=== PATIENT | female | born 1995 | race Caucasian/White ===

== ENCOUNTER 2021-01-19 09:35 | Inpatient (IN) | payer OTHER, SELFPAY ==
[2021-01-19 10:06] VITALS: BP 131/88; PULSE 89; RESP 17; TEMP 37; O2SAT 96
[2021-01-19 10:28] VITALS: BP 130/80; PULSE 101; O2SAT 98; BMI 29.3
--- NOTE | 2021-01-19 10:59 | ECG_ITS ---
Test Reason : MEDICAL CLEARANCE Blood Pressure : / mmHG Vent. Rate : 055 BPM Atrial Rate : 055 BPM P-R Int : 162 ms QRS Dur : 082 ms QT Int : 432 ms P-R-T Axes : 011 044 020 degrees QTc Int : 413 ms Sinus bradycardia with sinus arrhythmia Otherwise normal ECG No previous ECGs available Referred By: Elisabeth Stewart Electronically Signed By:ALANIS MORALES MD
[2021-01-19 11:41] LABS: MANUAL DIFF FLAG NO
[2021-01-19 11:44] LABS: Hematocrit 41.2 % (37-47); Hemoglobin 14.1 g/dl (12.0-16.0); Mean Corpuscular HGB Conc 34.2 g/dl (31.0-35.0); Mean Corpuscular Hemoglobin 28.5 pg (27.0-33.0); Mean Corpuscular Volume 83.2 fL (80-98); Platelet Count 368 X10*3/uL (160-400); Red Blood Count 4.95 X10*6/uL (4.20-5.50); Red Cell Distribution Width 12.1 % (11.0-16.0); White Blood Count 5.6 X10*3/uL (4.8-10.8)
[2021-01-19 11:45] LABS: Basophils Absolute Auto 0.1 X10*3/uL (0.0-0.2); Basophils Percent Auto 0.9 % (0-2); Eosinophils Percent Auto 0.5 % (0-4); Glucose Urine UA NEG (NEG); Imm Gran Abs Auto 0.01 X10*3/uL (0.00-0.03); Imm Gran Pct Auto 0.2 % (0.0-0.4); Leukocyte Esterase Urine 1+ (NEG); Lymphocytes Absolute Auto 1.2 X10*3/uL (1.2-4.9); Lymphocytes Percent Auto 21.1 % (20-40); Monocytes Absolute Auto 0.3 X10*3/uL (0.1-1.2); Monocytes Percent Auto 5.3 % (2-11); Neutrophils Absolute Auto 4.1 X10*3/uL (2.0-8.3); Nitrite Urine POS (NEG); Specific Gravity - Urine >= 1.030 (1.005-1.025); UACC Culture Trigger YES; Urine Blood NEG (NEG); Urine Ketones 5 MG/DL (NEG); Urine Protein TRACE MG/DL (NEG-TRACE)
[2021-01-19 11:46] LABS: Appearance Urine CLOUDY; Color Urine YELLOW
[2021-01-19 11:55] LABS: Bacteria Urine 4+ /LPF; Calcium Oxalate Crystals Urine TRACE /LPF; RBC Urine 0 /HPF (0); Squamous Epithelial Cell Urine TRACE /LPF
[2021-01-19 12:16] LABS: HCG Quantitative < 2 mIU/mL
[2021-01-19 12:28] LABS: Ethanol < 10 mg/dL
[2021-01-19 12:28] LABS: Amphetamine Screen Urine Not Detected (Not Detect); Barbiturates, Urine Not Detected (Not Detect); Benzodiazepines Screen Urine Not Detected (Not Detect); Cannabinoid Screen Urine Not Detected (Not Detect); Cocaine Screen Urine Not Detected (Not Detect); Opiate Screen Urine Not Detected (Not Detect); Phencyclidine Screen Urine Not Detected (Not Detect)
[2021-01-19 12:29] LABS: Magnesium 2.1 mg/dL (1.6-2.6)
[2021-01-19 12:33] LABS: Alanine Aminotransferase 16 U/L (0-31); Albumin Level 4.6 g/dL (3.5-5.0); Alkaline Phosphatase 54 U/L (39-117); Anion Gap 17 (12-20); Aspartate Amino Transferase 15 U/L (5-31); Bilirubin Total 0.7 mg/dL (0.0-1.0); Blood Urea Nitrogen 13 mg/dL (9-16); Calcium 10.3 mg/dL (8.4-10.2); Carbon Dioxide 24 mmol/L (22-29); Chloride 104 mmol/L (96-108); Creatinine Clr Calc Pharmacy 113.9; Estimated Glomerular Filt Rate > 60; Glucose Random 106 mg/dL (60-115); Potassium 4.5 mmol/L (3.3-5.1); Sodium 140 mmol/L (135-145); Total Protein 8.3 g/dL (6.5-8.0)
--- NOTE | 2021-01-19 12:43 | ED.PSYCH ---
HPI - Psych General Chief Complaint: Psychiatric Symptoms Stated Complaint: crisis Time Seen by Provider: 01/19/21 09:49 Source: patient and family ( and brother who is a clinician) Mode of arrival: ambulatory Limitations: no limitations History of Present Illness HPI Narrative: 25-year-old female with a past medical history of asthma presenting to the ED with her brother who is a clinician and her at bedside with complaints of increased anxiety with depression with associated auditory/visual hallucinations to harm her children with SI thoughts to harm herself because she does not want to continue having these hallucinations/vivid dreams/nightmares about harming her 2 children. She reports that for the past 3 weeks she has been having nightmares and having auditory and visual hallucinations with vivid dreams and nightmares to harm her 2 children and she does not want to harm her 2 children and she feels very guilty about having these thoughts/dreams. Her brother pulled me aside due to patient allowed him to speak to me privately to give me more information about the patient's history and what she is going through. Apparently the patient's was before marrying the patient and his committed suicide in the house that the patient and her are currently living in. Apparently 2 years ago she had a similar situation where she was having same anxiety/depression with auditory visual hallucinations/vivid dreams to harm her children with SI thoughts to harm herself therefore she was started on medication and because the house was a trigger they had to move out of the house into the [id number]'s house and the [id number] moved into the house where the suicide was committed. She lived there with her and her stepdaughter and her child for a while then recently they decided that they wanted to move back into the house because it was bigger than the [id number] house therefore they switch back and for the past 3 weeks since being in the new house she has started with the symptoms again. Although she has not had the symptoms in over 2 years. The patient denies the house being the trigger at this point. Although the brother believes this is the main trigger again. Patient also reports that she discontinued taking her psych meds for at least 8 months recently and was recently started back on her medications. She was recently at respite for the past week and finally open to her mom about everything that is going on that is when her mother spoke to her brother who is a clinician they decided to bring her here for further evaluation and treatment. The brother would like the patient to receive services although is interested in psychiatric unit at [facility]. Her brother the clinician reports that their family is having a difficult time because now her is reliving the moments of his ex- who committed suicide his daughter who is the patient's stepdaughter is also having a tough time because she has also reliving moments. Although the children are safe with the grandmother at this time. Patient denies any drug usage. She reports she feels safe at home. She is not homeless. She reports she drinks alcohol on occasion. She denies any additional complaints or concerns at this time. MD complaint: suicidal ideation, feels depressed, anxiety and hallucinations Onset (ago): week(s) (3 weeks worse today) Duration: constant and getting worse History of same: Yes Relieving factors: none Exacerbating factors: other (The how she is currently residing in) Context: not taking psychiatric medications (Non med compliant although was restarted on her meds recently) and significant life stressor Associated psychiatric symptoms: depression, suicidal ideation, racing thoughts, auditory hallucinations and visual hallucinations Associated symptoms: denies other symptoms Treatments prior to arrival: none If self harm: admits thoughts of self harm Related Data Home Medications Medication Instructions Recorded Confirmed prazosin 1 cap PO BEDTIME 01/19/21 01/19/21 quetiapine 25 mg PO BID PRN 01/19/21 01/19/21 quetiapine 50 mg PO ONCE PRN 01/19/21 01/19/21 sertraline 1 tab PO BEDTIME 01/19/21 01/19/21 sertraline 1 tab PO DAILY 01/19/21 01/19/21 Allergies Allergy/AdvReac Type Severity Reaction Status Date / Time No Known Allergies Allergy Unverified 03/16/20 16:37 Review of Systems Review of Systems: Constitutional : No Fever, No Chills ENT/Mouth : No Ear Pain, No Nasal Congestion, No sore throat Eyes: No Eye Pain, No Swelling, No Redness Cardiovascular : No Chest Pain, No SOB Respiratory : No Cough, No Sputum, No Dyspnea Gastrointestinal : No ingestions, No Nausea, No Vomiting, No Diarrhea, No Hematochezia, No Melena Genitourinary : No Dysuria, No Urinary Frequency, No Hematuria Musculoskeletal : No Myalgias Skin : No Skin Lesions, No rash Neuro : No Weakness, No Numbness, No Paresthesias, No Dizziness, No Headache Psych : + Anxiety, + Depression, + SI, + thoughts of self injury, No HI, + AVH, Heme/Lymph: No Lymphadenopathy Endocrine : No Polyuria, No Polydipsia Yes all other systems are reviewed and are negative [facility] Past Medical History Attestation statement: The following information was validated with the patient. Social History Social History Advance Directives: Yes Advance Directives Information Provided: Yes Advance Directives on File: No Patient : No Physical Exam Vital Signs: Vital Signs: Last Vital Signs Temp 98.6 F 01/19/21 10:06 Pulse 89 01/19/21 10:06 Resp 17 01/19/21 10:06 BP 131/88 01/19/21 10:06 Pulse Ox 96 01/19/21 10:06 Body Mass Index 29.3 vital signs have been reviewed as normal and appeared to be correct. Blood pressure normal. Heart rate normal. Respiration rate normal. Temperature normal. Oxygen saturation normal. Appearance: Alert. Oriented X3. No acute distress. Head: Normal external exam. Normocephalic. Atraumatic. Eyes: PERRLA. EOMI. Conjunctiva and sclera normal. Eyelids normal. ENT: Pharynx normal. Uvula midline. Moist mucous membranes. No trismus noted. No drooling noted. No muffled voice noted. Neck: Normal inspection. Neck supple. FROM. No adenopathy. Thyroid Normal. No meningeal signs. No neck mass noted. CVS: Normal heart rate and rhythm. Heart sound normal. No murmurs noted. Pulses normal throughout. Respiratory: No respiratory distress. Painless inspiration. Breath sounds normal. No wheezes/rales/rhonchi noted. Chest nontender. No accessory muscle usage noted or decreased air movement noted. Abdomen: Soft and nontender. Bowel sounds normal in all 4 quadrants. No distention noted. No organomegaly noted. No visible injury noted. Back: Full range of motion noted. Skin: Skin warm and dry. Normal skin color. Normal skin turgor. No rashes/lesions/lacerations noted. Extremities: Extremities exhibit normal range of motion. Extremities nontender. Neuro: Oriented X 3. No motor deficit. No sensory deficit. Reflexes normal. Psych: Appearance grossly normal, well-kept, mental status normal, speech and movement normal, speech clear, patient appears very sad and anxious along with depressed. Occasionally is very tearful repeating I do not want a harm my children. Is cooperative. Normal thought process. Normal thought content. Normal good insight. Judgment good. Course Course Course Narrative: 25-year-old female presenting to the ED with her brother who is a clinician and her at bedside with complaints of increased anxiety with depression with associated auditory/visual hallucinations to harm her children with SI thoughts to harm herself because she does not want to continue having these hallucinations/vivid dreams/nightmares about harming her 2 children. She is currently living in her 's house where his prior committed suicide with his daughter which would be the patient's stepdaughter and their child. Was recently a respite. Denies any drug usage. Occasional alcohol usage. Is not homeless. Feels safe at home. - Labs reviewed and all within normal limits. Serum quant negative for . Patient positive for UTI. Patient negative for all drugs and EtOH. - patient will be started on Macrobid b.i.d. times 5 days until 11/24/2019. Physician observation was started at this time because the patient is medically cleared and needs more time to be evaluated by crisis to evaluate the need for inpatient psychiatric rehabilitation. At this time patient remains alert and oriented x3. Not in any acute distress. No focal neuro deficits are noted. Lungs clear to auscultation CV RRR. Abdomen is soft and nontender. Will continue to monitor. [facility] - Psych Medical Records Attestation: I reviewed the patient's medical records. Lab Data Attestation: I reviewed the patient's lab results. Result diagrams: 01/19/21 11:01/19/21 11:29 Labs: Lab Results 01/19/21 01/19/21 01/19/21 Range/Units 11:09 11:09 11:09 WBC 5.6 (4.8-10.8) X10*3/uL RBC 4.95 (4.20-5.50) X10*6/uL Hgb 14.1 (12.0-16.0) g/dl Hct 41.2 (37-47) % MCV 83.2 (80-98) fL MCH 28.5 (27.0-33.0) pg MCHC 34.2 (31.0-35.0) g/dl RDW 12.1 (11.0-16.0) % Plt Count 368 (160-400) X10*3/uL MPV 9.0 L (9.4-12.3) fL Immature Gran % (Auto) 0.2 (0.0-0.4) % Neut % (Auto) 72.0 (45-73) % Lymph % (Auto) 21.1 (20-40) % [place] % (Auto) 5.3 (2-11) % Eos % (Auto) 0.5 (0-4) % Baso % (Auto) 0.9 (0-2) % Lymph # (Auto) 1.2 (1.2-4.9) X10*3/uL [place] # (Auto) 0.3 (0.1-1.2) X10*3/uL Eos # (Auto) 0.0 (0.0-0.4) X10*3/uL Baso # (Auto) 0.1 (0.0-0.2) X10*3/uL Abs Immat Gran (auto) 0.01 (0.00-0.03) X10*3/uL Absolute Neuts (auto) 4.1 (2.0-8.3) X10*3/uL Absolute Nucleated RBC 0.000 (0.0-0.012) X10*3/uL Nucleated RBC % (auto) 0.0 (0.0-0.2) /100WBC Sodium (135-145) mmol/L Potassium (3.3-5.1) mmol/L Chloride (96-108) mmol/L Carbon Dioxide (22-29) mmol/L Anion Gap (12-20) BUN (9-16) mg/dL Creatinine (0.5-1.4) mg/dL Estim Creat Clear Calc Estimated GFR Random Glucose (60-115) mg/dL Lactic Acid (0.5-2.0) mmol/L Calcium (8.4-10.2) mg/dL Magnesium (1.6-2.6) mg/dL Total Bilirubin (0.0-1.0) mg/dL AST (5-31) U/L ALT (0-31) U/L Alkaline Phosphatase (39-117) U/L Total Protein (6.5-8.0) g/dL Albumin (3.5-5.0) g/dL Beta HCG, Quant mIU/mL Urine Color YELLOW Urine Appearance CLOUDY Urine pH 6.0 (5.0-8.0) Ur Specific [place] >= 1.030 H (1.005-1.025) Urine Protein TRACE (NEG-TRACE) MG/DL Urine Glucose (UA) NEG (NEG) MG/DL Urine Ketones 5 (NEG) MG/DL Urine Blood NEG (NEG) Urine Nitrite POS H (NEG) Ur Leukocyte Esterase 1+ H (NEG) Urine RBC 0 (0) /HPF Urine WBC 15-29 H (0-4) /HPF Ur Squamous Epith Cells TRACE /LPF Calcium Oxalate Crystal TRACE /LPF Urine Bacteria 4+ /LPF Urine Opiates Screen Not Detected (Not Detect) Ur Barbiturates Screen Not Detected (Not Detect) Ur Phencyclidine Scrn Not Detected (Not Detect) Ur Amphetamines Screen Not Detected (Not Detect) U Benzodiazepines Scrn Not Detected (Not Detect) Urine Cocaine Screen Not Detected (Not Detect) U Marijuana (THC) Screen Not Detected (Not Detect) Ethyl Alcohol mg/dL 01/19/21 01/19/21 01/19/21 Range/Units 11:29 11:29 11:29 WBC (4.8-10.8) X10*3/uL RBC (4.20-5.50) X10*6/uL Hgb (12.0-16.0) g/dl Hct (37-47) % MCV (80-98) fL MCH (27.0-33.0) pg MCHC (31.0-35.0) g/dl RDW (11.0-16.0) % Plt Count (160-400) X10*3/uL MPV (9.4-12.3) fL Immature Gran % (Auto) (0.0-0.4) % Neut % (Auto) (45-73) % Lymph % (Auto) (20-40) % [place] % (Auto) (2-11) % Eos % (Auto) (0-4) % Baso % (Auto) (0-2) % Lymph # (Auto) (1.2-4.9) X10*3/uL [place] # (Auto) (0.1-1.2) X10*3/uL Eos # (Auto) (0.0-0.4) X10*3/uL Baso # (Auto) (0.0-0.2) X10*3/uL Abs Immat Gran (auto) (0.00-0.03) X10*3/uL Absolute Neuts (auto) (2.0-8.3) X10*3/uL Absolute Nucleated RBC (0.0-0.012) X10*3/uL Nucleated RBC % (auto) (0.0-0.2) /100WBC Sodium 140 (135-145) mmol/L Potassium 4.5 (3.3-5.1) mmol/L Chloride 104 (96-108) mmol/L Carbon Dioxide 24 (22-29) mmol/L Anion Gap 17 (12-20) BUN 13 (9-16) mg/dL Creatinine 0.86 (0.5-1.4) mg/dL Estim Creat Clear Calc 113.9 Estimated GFR > 60 Random Glucose 106 (60-115) mg/dL Lactic Acid 1.0 (0.5-2.0) mmol/L Calcium 10.3 H (8.4-10.2) mg/dL Magnesium 2.1 (1.6-2.6) mg/dL Total Bilirubin 0.7 (0.0-1.0) mg/dL AST 15 (5-31) U/L ALT 16 (0-31) U/L Alkaline Phosphatase 54 (39-117) U/L Total Protein 8.3 H (6.5-8.0) g/dL Albumin 4.6 (3.5-5.0) g/dL Beta HCG, Quant < 2 mIU/mL Urine Color Urine Appearance Urine pH (5.0-8.0) Ur Specific [place] (1.005-1.025) Urine Protein (NEG-TRACE) MG/DL Urine Glucose (UA) (NEG) MG/DL Urine Ketones (NEG) MG/DL Urine Blood (NEG) Urine Nitrite (NEG) Ur Leukocyte Esterase (NEG) Urine RBC (0) /HPF Urine WBC (0-4) /HPF Ur Squamous Epith Cells /LPF Calcium Oxalate Crystal /LPF Urine Bacteria /LPF Urine Opiates Screen (Not Detect) Ur Barbiturates Screen (Not Detect) Ur Phencyclidine Scrn (Not Detect) Ur Amphetamines Screen (Not Detect) U Benzodiazepines Scrn (Not Detect) Urine Cocaine Screen (Not Detect) U Marijuana (THC) Screen (Not Detect) Ethyl Alcohol mg/dL 01/19/21 Range/Units 11:29 WBC (4.8-10.8) X10*3/uL RBC (4.20-5.50) X10*6/uL Hgb (12.0-16.0) g/dl Hct (37-47) % MCV (80-98) fL MCH (27.0-33.0) pg MCHC (31.0-35.0) g/dl RDW (11.0-16.0) % Plt Count (160-400) X10*3/uL MPV (9.4-12.3) fL Immature Gran % (Auto) (0.0-0.4) % Neut % (Auto) (45-73) % Lymph % (Auto) (20-40) % [place] % (Auto) (2-11) % Eos % (Auto) (0-4) % Baso % (Auto) (0-2) % Lymph # (Auto) (1.2-4.9) X10*3/uL [place] # (Auto) (0.1-1.2) X10*3/uL Eos # (Auto) (0.0-0.4) X10*3/uL Baso # (Auto) (0.0-0.2) X10*3/uL Abs Immat Gran (auto) (0.00-0.03) X10*3/uL Absolute Neuts (auto) (2.0-8.3) X10*3/uL Absolute Nucleated RBC (0.0-0.012) X10*3/uL Nucleated RBC % (auto) (0.0-0.2) /100WBC Sodium (135-145) mmol/L Potassium (3.3-5.1) mmol/L Chloride (96-108) mmol/L Carbon Dioxide (22-29) mmol/L Anion Gap (12-20) BUN (9-16) mg/dL Creatinine (0.5-1.4) mg/dL Estim Creat Clear Calc Estimated GFR Random Glucose (60-115) mg/dL Lactic Acid (0.5-2.0) mmol/L Calcium (8.4-10.2) mg/dL Magnesium (1.6-2.6) mg/dL Total Bilirubin (0.0-1.0) mg/dL AST (5-31) U/L ALT (0-31) U/L Alkaline Phosphatase (39-117) U/L Total Protein (6.5-8.0) g/dL Albumin (3.5-5.0) g/dL Beta HCG, Quant mIU/mL Urine Color Urine Appearance Urine pH (5.0-8.0) Ur Specific [place] (1.005-1.025) Urine Protein (NEG-TRACE) MG/DL Urine Glucose (UA) (NEG) MG/DL Urine Ketones (NEG) MG/DL Urine Blood (NEG) Urine Nitrite (NEG) Ur Leukocyte Esterase (NEG) Urine RBC (0) /HPF Urine WBC (0-4) /HPF Ur Squamous Epith Cells /LPF Calcium Oxalate Crystal /LPF Urine Bacteria /LPF Urine Opiates Screen (Not Detect) Ur Barbiturates Screen (Not Detect) Ur Phencyclidine Scrn (Not Detect) Ur Amphetamines Screen (Not Detect) U Benzodiazepines Scrn (Not Detect) Urine Cocaine Screen (Not Detect) U Marijuana (THC) Screen (Not Detect) Ethyl Alcohol < 10 mg/dL ECG Data Attestation: I personally reviewed and interpreted this ECG as follows: ECG interpretation date: 01/19/21 ECG interpretation time: 12:38 Interpretation: Sinus bradycardia with ventricular rate of 55 with a normal NH interval normal QRS duration normal QT/QTC interval. No acute ischemic changes are noted. Discharge Plan Discharge Clinical Impression: Suicidal ideation, Depression, Acute anxiety, Nightmare, Auditory hallucination, Visual hallucination Prescriptions: No Action prazosin 1 mg capsule 1 cap PO BEDTIME RF: 0 sertraline 25 mg tablet 1 tab PO BEDTIME RF: 0 sertraline 50 mg tablet 1 tab PO DAILY RF: 0 quetiapine 50 mg tablet 50 mg PO ONCE PRN (Reason: Insomnia) RF: 0 quetiapine 25 mg Tablet 25 mg PO BID PRN (Reason: Agitation) RF: 0
[2021-01-19] MEDS: Nitrofurantoin Monohyd/M-Cryst 100 MG CAPSULE PO ×2 (13:04→21:41)
[2021-01-19 16:38] VITALS: BP 115/77; PULSE 80; RESP 17; TEMP 36.5; O2SAT 98
[2021-01-19] MEDS: LORazepam 0.5 MG TABLET 2 MG PO (16:58)
[2021-01-19 18:06] LABS: COVID-19 Test Negative (Negative)
--- NOTE | 2021-01-19 18:37 | PC.NURSE ---
Pt very agitated after Care team eval, laying on stretcher not moving saying over and over this is a dream. Mother at bedside to comfort pt. Medicated with ativan PRN with good effect, plan for M3 admission
[2021-01-19 21:41] VITALS: BP 136/90; PULSE 72
[2021-01-19] MEDS: Prazosin HCL 1 MG CAPSULE PO (21:41)
[2021-01-19 21:45] VITALS: TEMP 36.6
[2021-01-19] MEDS: QUEtiapine Fumarate 50 MG TABLET PO (22:23)
[2021-01-20 06:00] VITALS: BP 129/63; PULSE 106; RESP 20; TEMP 36.7; O2SAT 96
[2021-01-20 07:02] LABS: Estimated Average Glucose 105 mg/dL; Hemoglobin A1c % 5.3 %
[2021-01-20 07:28] LABS: Cholesterol 252 mg/dL; HDL Cholesterol 66 mg/dL; LDL Cholesterol Calculated 162 mg/dl; Triglycerides 120 mg/dL
[2021-01-20 07:42] LABS: Thyroid Stimulating Hormone 0.94 uIU/mL (0.32-4.0)
[2021-01-20] MEDS: Sertraline HCL 50 MG TABLET PO (08:07)
[2021-01-20] MEDS: Nitrofurantoin Monohyd/M-Cryst 100 MG CAPSULE PO ×2 (08:07→20:13)
[2021-01-20] MEDS: QUEtiapine Fumarate 25 MG TABLET PO (08:07)
--- NOTE | 2021-01-20 12:38 | HO.PSYADMNOT ---
HPI Chief Complaint: SI Sources of Information: patient interviewed, chart reviewed and crisis/core team assessment reviewed HPI Subjective Notes: Conditional Voluntary Narrative: Ms. Dyer is a 25 year-old woman with hx of depression and psychosis who was brought in by family due to thoughts of wanting to harm her children then guilt for having these thoughts and passive suicidal ideation. In the ED, her utox was negative. On the unit, Ms. Dyer reports that she has been feeling increasingly more anxious and worried that something bad may happen to her children. She reports poor sleep and poor appetite. She reports seeing images of terrible things happening to her children. She denies hearing voices but states she has intrusive thoughts of ideas of harming her children, which are very distressing to her. This is her first inpatient psychiatric admission but reports similar incident happened about 2 years ago. Past Psychiatric History: Inpatient: none prior OP: none Suicide attempts: none Past medication trials: seroquel, sertraline Medical Evaluation Reviewed: Yes FOR[facility]LY [facility] Medical History (Updated 01/22/21 @ 04:55 by Keke Bhakta) Asthma Family History: Brother/Mother- Borderline Personality disorder Social History: lives with boyfriend of 4 years with whom she has 3 year old son. They live with his daughter of 10 years. Substance History: none Trauma History: denies Diagnostics Vital Signs (24Hr): Vital Signs - 24 hr 01/19/21 16:38 01/19/21 21:41 01/19/21 21:45 Temperature 97.7 F 97.8 F Pulse Rate 80 72 Respiratory Rate 17 Blood Pressure 115/77 136/90 H Pulse Oximetry 98 01/20/21 06:00 Temperature 98.0 F Pulse Rate 106 H Respiratory Rate 20 Blood Pressure 129/63 Pulse Oximetry 96 Body Mass Index 29.3 Labs Results: 01/19/21 11:09 01/19/21 11:29 Labs: Laboratory Results - last 48 hr 01/19/21 01/19/21 01/19/21 11:09 11:09 11:09 WBC 5.6 RBC 4.95 Hgb 14.1 Hct 41.2 MCV 83.2 MCH 28.5 MCHC 34.2 RDW 12.1 Plt Count 368 MPV 9.0 L Immature Gran % (Auto) 0.2 Neut % (Auto) 72.0 Lymph % (Auto) 21.1 [place] % (Auto) 5.3 Eos % (Auto) 0.5 Baso % (Auto) 0.9 Lymph # (Auto) 1.2 [place] # (Auto) 0.3 Eos # (Auto) 0.0 Baso # (Auto) 0.1 Abs Immat Gran (auto) 0.01 Absolute Neuts (auto) 4.1 Absolute Nucleated RBC 0.000 Nucleated RBC % (auto) 0.0 Sodium Potassium Chloride Carbon Dioxide Anion Gap BUN Creatinine Estim Creat Clear Calc Estimated GFR Random Glucose Estimat Average Glucose Hemoglobin A1c % Lactic Acid Calcium Magnesium Total Bilirubin AST ALT Alkaline Phosphatase Total Protein Albumin Triglycerides Cholesterol LDL Cholesterol, Calc HDL Cholesterol TSH Beta HCG, Quant Urine Color YELLOW Urine Appearance CLOUDY Urine pH 6.0 Ur Specific [place] >= 1.030 H Urine Protein TRACE Urine Glucose (UA) NEG Urine Ketones 5 Urine Blood NEG Urine Nitrite POS H Ur Leukocyte Esterase 1+ H Urine RBC 0 Urine WBC 15-29 H Ur Squamous Epith Cells TRACE Calcium Oxalate Crystal TRACE Urine Bacteria 4+ Urine Opiates Screen Not Detected Ur Barbiturates Screen Not Detected Ur Phencyclidine Scrn Not Detected Ur Amphetamines Screen Not Detected U Benzodiazepines Scrn Not Detected Urine Cocaine Screen Not Detected U Marijuana (THC) Screen Not Detected Ethyl Alcohol COVID-19 ([facility]) COVID-19 Clin Com 01/19/21 01/19/21 01/19/21 11:29 11:29 11:29 WBC RBC Hgb Hct MCV MCH MCHC RDW Plt Count MPV Immature Gran % (Auto) Neut % (Auto) Lymph % (Auto) [place] % (Auto) Eos % (Auto) Baso % (Auto) Lymph # (Auto) [place] # (Auto) Eos # (Auto) Baso # (Auto) Abs Immat Gran (auto) Absolute Neuts (auto) Absolute Nucleated RBC Nucleated RBC % (auto) Sodium 140 Potassium 4.5 Chloride 104 Carbon Dioxide 24 Anion Gap 17 BUN 13 Creatinine 0.86 Estim Creat Clear Calc 113.9 Estimated GFR > 60 Random Glucose 106 Estimat Average Glucose Hemoglobin A1c % Lactic Acid 1.0 Calcium 10.3 H Magnesium 2.1 Total Bilirubin 0.7 AST 15 ALT 16 Alkaline Phosphatase 54 Total Protein 8.3 H Albumin 4.6 Triglycerides Cholesterol LDL Cholesterol, Calc HDL Cholesterol TSH Beta HCG, Quant < 2 Urine Color Urine Appearance Urine pH Ur Specific [place] Urine Protein Urine Glucose (UA) Urine Ketones Urine Blood Urine Nitrite Ur Leukocyte Esterase Urine RBC Urine WBC Ur Squamous Epith Cells Calcium Oxalate Crystal Urine Bacteria Urine Opiates Screen Ur Barbiturates Screen Ur Phencyclidine Scrn Ur Amphetamines Screen U Benzodiazepines Scrn Urine Cocaine Screen U Marijuana (THC) Screen Ethyl Alcohol COVID-19 ([facility]) COVID-19 Clin Com 01/19/21 01/19/21 01/20/21 11:29 17:44 06:39 WBC RBC Hgb Hct MCV MCH MCHC RDW Plt Count MPV Immature Gran % (Auto) Neut % (Auto) Lymph % (Auto) [place] % (Auto) Eos % (Auto) Baso % (Auto) Lymph # (Auto) [place] # (Auto) Eos # (Auto) Baso # (Auto) Abs Immat Gran (auto) Absolute Neuts (auto) Absolute Nucleated RBC Nucleated RBC % (auto) Sodium Potassium Chloride Carbon Dioxide Anion Gap BUN Creatinine Estim Creat Clear Calc Estimated GFR Random Glucose Estimat Average Glucose 105 Hemoglobin A1c % 5.3 Lactic Acid Calcium Magnesium Total Bilirubin AST ALT Alkaline Phosphatase Total Protein Albumin Triglycerides Cholesterol LDL Cholesterol, Calc HDL Cholesterol TSH Beta HCG, Quant Urine Color Urine Appearance Urine pH Ur Specific [place] Urine Protein Urine Glucose (UA) Urine Ketones Urine Blood Urine Nitrite Ur Leukocyte Esterase Urine RBC Urine WBC Ur Squamous Epith Cells Calcium Oxalate Crystal Urine Bacteria Urine Opiates Screen Ur Barbiturates Screen Ur Phencyclidine Scrn Ur Amphetamines Screen U Benzodiazepines Scrn Urine Cocaine Screen U Marijuana (THC) Screen Ethyl Alcohol < 10 COVID-19 ([facility]) Negative COVID-19 Clin Com See Note 01/20/21 06:39 WBC RBC Hgb Hct MCV MCH MCHC RDW Plt Count MPV Immature Gran % (Auto) Neut % (Auto) Lymph % (Auto) [place] % (Auto) Eos % (Auto) Baso % (Auto) Lymph # (Auto) [place] # (Auto) Eos # (Auto) Baso # (Auto) Abs Immat Gran (auto) Absolute Neuts (auto) Absolute Nucleated RBC Nucleated RBC % (auto) Sodium Potassium Chloride Carbon Dioxide Anion Gap BUN Creatinine Estim Creat Clear Calc Estimated GFR Random Glucose Estimat Average Glucose Hemoglobin A1c % Lactic Acid Calcium Magnesium Total Bilirubin AST ALT Alkaline Phosphatase Total Protein Albumin Triglycerides 120 Cholesterol 252 LDL Cholesterol, Calc 162 HDL Cholesterol 66 TSH 0.94 Beta HCG, Quant Urine Color Urine Appearance Urine pH Ur Specific [place] Urine Protein Urine Glucose (UA) Urine Ketones Urine Blood Urine Nitrite Ur Leukocyte Esterase Urine RBC Urine WBC Ur Squamous Epith Cells Calcium Oxalate Crystal Urine Bacteria Urine Opiates Screen Ur Barbiturates Screen Ur Phencyclidine Scrn Ur Amphetamines Screen U Benzodiazepines Scrn Urine Cocaine Screen U Marijuana (THC) Screen Ethyl Alcohol COVID-19 ([facility]) COVID-19 Clin Com Meds/Allergies Meds Home Medications Acetaminophen (Acetaminophen 325 Mg Tablet) 650 mg PO Q6H PRN PRN Reason: Headache/Pain Mild Scale (1-3) Al Hydroxide/Mg Hydroxide (Magnesium Hydrox/Alum Hydrox 30 Ml Oral.Susp) 30 ml PO Q6H PRN PRN Reason: Heartburn/Nausea Hydroxyzine HCl (Hydroxyzine Hcl 25 Mg Tablet) 25 mg PO BEDTIME PRN PRN Reason: Anxiety Lorazepam (Lorazepam 0.5 Mg Tablet) 1 mg PO Q6H PRN PRN Reason: anxiety Magnesium Hydroxide (Milk Of Magnesia 30 Ml Oral.Susp) 30 ml PO DAILY PRN PRN Reason: Constipation Nitrofurantoin Macrocrystals (Nitrofurantoin Monohyd/M-Cryst 100 Mg Capsule) 100 mg PO BID [facility] Stop: 01/23/21 21:01 Last Admin: 01/21/21 21:17 Dose: 100 mg Documented by: Prazosin HCl (Prazosin Hcl 1 Mg Capsule) 1 mg PO BEDTIME [facility]; Protocol Last Admin: 01/21/21 21:17 Dose: 1 mg Documented by: Quetiapine Fumarate (Quetiapine Fumarate 50 Mg Tablet) 50 mg PO BEDTIME [facility] Last Admin: 01/21/21 21:17 Dose: 50 mg Documented by: Quetiapine Fumarate (Quetiapine Fumarate 50 Mg Tablet) 50 mg PO Q6H PRN PRN Reason: anxiety/agitation Risperidone (Risperidone 1 Mg Tablet) 1 mg PO BID [facility] Last Admin: 01/21/21 21:17 Dose: 1 mg Documented by: Sertraline HCl (Sertraline Hcl 50 Mg Tablet) 50 mg PO DAILY [facility] Last Admin: 01/21/21 08:41 Dose: 50 mg Documented by: Trazodone HCl (Trazodone Hcl 50 Mg Tablet) 50 mg PO BEDTIME PRN PRN Reason: Insomnia Allergies Allergies Allergy/AdvReac Type Severity Reaction Status Date / Time No Known Allergies Allergy Unverified 03/16/20 16:37 Mental Status Exam Mental Status Exam Narrative: Appearance: casually groomed, fair hygiene, restless Behavior:cooperative psychomotor: agitation Speech:clear, normal rate/rhythm/volume, spontaneous. Thought process:tangential Thought content:worried about seeing images of her children being hurt, feeling anxious Mood: anxious Affect: congruent, fearful, hypervigilant SI:passive HI:denies VH/AH:VH of her children being hurt, and hearing voices telling her that she will hurt her children Delusions:paranoid ideas of something bad happening to her children, worried that someone may hurt them Memory/cog:alert, oriented x 3. poor attention Assessment & Plan Assessment & Plan (1) Severe recurrent major depressive disorder with psychosis: Status: Acute Code(s): F33.3 - Major depressive disorder, recurrent, severe with psychotic symptoms Assessment and Plan: 1. continue sertraline 2. start risperidone 1mg po BID. continue seroquel 50mg po qhs for now but may d/c. Reason for continued inpatient stay Substantial Risk for: inability to function
[2021-01-20] MEDS: risperiDONE 1 MG TABLET PO ×2 (14:04→20:12)
[2021-01-20] MEDS: QUEtiapine Fumarate 50 MG TABLET PO (20:12)
[2021-01-20 20:13] VITALS: BP 140/84; PULSE 98
[2021-01-20] MEDS: Prazosin HCL 1 MG CAPSULE PO (20:13)
[2021-01-20 20:14] VITALS: TEMP 36.5; O2SAT 97
--- NOTE | 2021-01-21 04:56 | HO.PSYCHPN ---
Subjective Subjective Date of Service: 01/22/21 Reason For Visit: SI Subjective Notes: Conditional Voluntary Interim History: Pt reports feeling less anxious and having less images of children being hurt. She reports continues to have intrusive thoughts telling her that she may hurt her children. She denies SI/HI. She reports slightly better sleep. She ahs been visible at times in the unit and social with roommate. She continues to pray with bible. No behavioral concerns. she is taking medications as prescribed. No side effects noted. Medication Compliance: Yes Review of Systems Review of Systems Constitutional : No Fever, No Chills ENT/Mouth : No Ear Pain, No Nasal Congestion, No sore throat Eyes: No Eye Pain, No Swelling, No Redness Cardiovascular : No Chest Pain, No SOB Respiratory : No Cough, No Sputum, No Dyspnea Gastrointestinal : No ingestions, No Nausea, No Vomiting, No Diarrhea, No Hematochezia, No Melena Genitourinary : No Dysuria, No Urinary Frequency, No Hematuria Musculoskeletal : No Myalgias Skin : No Skin Lesions, No rash Neuro : No Weakness, No Numbness, No Paresthesias, No Dizziness, No Headache Psych : + Anxiety, + Depression, + SI, + thoughts of self injury, No HI, + AVH, Heme/Lymph: No Lymphadenopathy Endocrine : No Polyuria, No Polydipsia Yes all other systems are reviewed and are negative Cardiovascular: Denies chest pain, Denies chest pain with activity, Denies Epigastric Pain, Denies rapid heart rate, Denies lightheadedness, Denies dyspnea and Denies dyspnea on exertion Respiratory: Denies dyspnea, Denies dyspnea on exertion and Denies wheezing Gastrointestinal: Denies constipation, Denies diarrhea and Denies hematemesis Allergic/Immunologic: Denies wheezing Mental Status Exam Mental Status Exam Narrative: Appearance: casually groomed, fair hygiene, restless Behavior:cooperative psychomotor: agitation Speech:clear, normal rate/rhythm/volume, spontaneous. Thought process:tangential Thought content:worried about seeing images of her children being hurt, feeling anxious Mood: anxious Affect: congruent, fearful, hypervigilant SI:passive HI:denies VH/AH:VH of her children being hurt, and hearing voices telling her that she will hurt her children Delusions:paranoid ideas of something bad happening to her children, worried that someone may hurt them Memory/cog:alert, oriented x 3. poor attention Diagnostics Vital Signs (24Hr): Vital Signs - 24 hr 01/21/21 06:00 01/21/21 20:05 01/21/21 21:17 Temperature 98.1 F 98.5 F Pulse Rate 71 70 70 Respiratory Rate 16 16 Blood Pressure 138/76 140/74 H 140/74 H Pulse Oximetry 98 98 Body Mass Index 29.3 Labs Results: 01/19/21 11:09 01/19/21 11:29 Labs: Laboratory Results - last 48 hr 01/20/21 01/20/21 01/20/21 06:39 06:39 06:39 Estimat Average Glucose 105 Hemoglobin A1c % 5.3 Triglycerides 120 Cholesterol 252 LDL Cholesterol, Calc 162 HDL Cholesterol 66 Vitamin B12 235 Folate 16.4 TSH 0.94 Medications Medications Current Medications Generic Name Dose Route Start Last Admin Trade Name Freq PRN Reason Stop Dose Admin Acetaminophen 650 mg 01/19/21 17:47 Acetaminophen 325 Mg Tablet PO Q6H PRN Headache/Pain Mild Scale (1-3) Al Hydroxide/Mg Hydroxide 30 ml 01/19/21 17:47 Magnesium Hydrox/Alum Hydrox 30 Ml Oral.Susp PO Q6H PRN Heartburn/Nausea Hydroxyzine HCl 25 mg 01/19/21 17:47 Hydroxyzine Hcl 25 Mg Tablet PO BEDTIME PRN Anxiety Lorazepam 1 mg 01/20/21 12:40 Lorazepam 0.5 Mg Tablet PO Q6H PRN anxiety Magnesium Hydroxide 30 ml 01/19/21 17:47 Milk Of Magnesia 30 Ml Oral.Susp PO DAILY PRN Constipation Nitrofurantoin Macrocrystals 100 mg 01/19/21 13:00 01/21/21 21:17 Nitrofurantoin Monohyd/M-Cryst 100 Mg Capsule PO 01/23/21 21:01 100 mg BID DICK Administration Prazosin HCl 1 mg 01/19/21 21:00 01/21/21 21:17 Prazosin Hcl 1 Mg Capsule PO 1 mg BEDTIME DICK Administration Protocol Quetiapine Fumarate 50 mg 01/19/21 22:15 01/21/21 21:17 Quetiapine Fumarate 50 Mg Tablet PO 50 mg BEDTIME DICK Administration Quetiapine Fumarate 50 mg 01/20/21 12:39 Quetiapine Fumarate 50 Mg Tablet PO Q6H PRN anxiety/agitation Risperidone 1 mg 01/20/21 12:40 01/21/21 21:17 Risperidone 1 Mg Tablet PO 1 mg BID DICK Administration Sertraline HCl 50 mg 01/19/21 12:30 01/21/21 08:41 Sertraline Hcl 50 Mg Tablet PO 50 mg DAILY DICK Administration Trazodone HCl 50 mg 01/19/21 17:47 Trazodone Hcl 50 Mg Tablet PO BEDTIME PRN Insomnia Allergies Allergies Allergy/AdvReac Type Severity Reaction Status Date / Time No Known Allergies Allergy Unverified 03/16/20 16:37 Assessment & Plan Assessment & Plan (1) Severe recurrent major depressive disorder with psychosis: Status: Acute Code(s): F33.3 - Major depressive disorder, recurrent, severe with psychotic symptoms Assessment and Plan: 1. continue sertraline 2. start risperidone 1mg po BID. continue seroquel 50mg po qhs for now but may d/c. Greater than 50% of the session was spent on counseling and/or coordination of care Reason for contiued inpatient stay Substantial Risk for: inability to function
[2021-01-21 06:00] VITALS: BP 138/76; PULSE 71; RESP 16; TEMP 36.7; O2SAT 98
[2021-01-21] MEDS: Nitrofurantoin Monohyd/M-Cryst 100 MG CAPSULE PO ×2 (08:41→21:17)
[2021-01-21] MEDS: risperiDONE 1 MG TABLET PO ×2 (08:41→21:17)
[2021-01-21] MEDS: Sertraline HCL 50 MG TABLET PO (08:41)
[2021-01-21 20:05] VITALS: BP 140/74; PULSE 70; RESP 16; TEMP 36.9; O2SAT 98
[2021-01-21 21:17] VITALS: BP 140/74; PULSE 70
[2021-01-21] MEDS: QUEtiapine Fumarate 50 MG TABLET PO (21:17)
[2021-01-21] MEDS: Prazosin HCL 1 MG CAPSULE PO (21:17)
[2021-01-22 04:31] LABS: Folate 16.4 ng/mL (> or = 4.0); Vitamin B12 235 pg/mL (200-900)
[2021-01-22 06:00] VITALS: BP 134/74; PULSE 65; RESP 16; TEMP 37; O2SAT 99
[2021-01-22] MEDS: risperiDONE 1 MG TABLET PO (08:20)
[2021-01-22] MEDS: Nitrofurantoin Monohyd/M-Cryst 100 MG CAPSULE PO ×2 (08:21→20:16)
[2021-01-22] MEDS: Sertraline HCL 50 MG TABLET PO (08:21)
--- NOTE | 2021-01-22 13:02 | P.PNPSI_ITS ---
Subjective Subjective Date of Service: 01/22/21 Reason For Visit: SI Interim History: pt presents as well-related, appreciate, superficially cheerful. states she has been struggling with whispers, which she recognizes as products of her own head and not the voice of any separate entity, of terrible things happening to her children and then becoming ruminative on those thoughts. she had been on seroquel until 7-9 months ago, when she stopped it due to weight gain. she was recently at [facility], where the seroquel 50 at bedtime was restarted (and also sertraline 50 mg daily), and then she was admitted here. she was started on risperidone 1 mg BID which has been helpful for her to reduce the whispers over the weekend. pt reads to MD from a book her boyfriend brought in for her about a CBT approach to managing intrusive unwanted thoughts. she has felt extremely helped by it, relieved by the reading of it, and identifies with many of its observations. she describes a FH where both her brother and mother are diagnosed with borderline personality disorder and her mother with bipolar disorder. she denies any trauma history and states she has been sleeping well without nightmares over the weekend. in light of her h/o bulimia and anorexia in HS and her discontinuation of previous med trial due to weight gain, the options of abilify and geodon, weight neutral neuroleptics, were discussed. pt agreed to trial of abilfy and to taper of seroquel and risperidone in the next couple of days. Mental Status Exam Mental Status Exam Narrative: appropriately dressed and groomed. no PMA/PMR. cooperative. speech nml in rate, loudness, tone. incr amount, decr latency. thoughts linear and logical. affect moderately labile. mood anxious. no SI/HI/AVH expressed. Diagnostics Vital Signs (24Hr): Vital Signs - 24 hr 01/21/21 20:05 01/21/21 21:17 01/22/21 06:00 Temperature 98.5 F 98.6 F Pulse Rate 70 70 65 Respiratory Rate 16 16 Blood Pressure 140/74 H 140/74 H 134/74 Pulse Oximetry 98 99 Body Mass Index 29.3 Labs Results: 01/19/21 11:09 01/19/21 11:29 Labs: Laboratory Results - last 48 hr 01/20/21 06:39 Vitamin B12 235 Folate 16.4 Medications Medications Current Medications Generic Name Dose Route Start Last Admin Trade Name Freq PRN Reason Stop Dose Admin Acetaminophen 650 mg 01/19/21 17:47 Acetaminophen 325 Mg Tablet PO Q6H PRN Headache/Pain Mild Scale (1-3) Al Hydroxide/Mg Hydroxide 30 ml 01/19/21 17:47 Magnesium Hydrox/Alum Hydrox 30 Ml Oral.Susp PO Q6H PRN Heartburn/Nausea Aripiprazole 2 mg 01/23/21 09:00 Aripiprazole 2 Mg Tablet PO DAILY DICK Hydroxyzine HCl 25 mg 01/19/21 17:47 Hydroxyzine Hcl 25 Mg Tablet PO BEDTIME PRN Anxiety Lorazepam 1 mg 01/20/21 12:40 Lorazepam 0.5 Mg Tablet PO Q6H PRN anxiety Magnesium Hydroxide 30 ml 01/19/21 17:47 Milk Of Magnesia 30 Ml Oral.Susp PO DAILY PRN Constipation Nitrofurantoin Macrocrystals 100 mg 01/19/21 13:00 01/22/21 08:21 Nitrofurantoin Monohyd/M-Cryst 100 Mg Capsule PO 01/23/21 21:01 100 mg BID DICK Administration Prazosin HCl 1 mg 01/19/21 21:00 01/21/21 21:17 Prazosin Hcl 1 Mg Capsule PO 1 mg BEDTIME DICK Administration Protocol Quetiapine Fumarate 25 mg 01/22/21 21:00 Quetiapine Fumarate 25 Mg Tablet PO 01/23/21 09:00 BEDTIME DICK Quetiapine Fumarate 12.5 mg 01/23/21 21:00 Quetiapine Fumarate 25 Mg Tablet PO 01/24/21 09:00 BEDTIME DICK Risperidone 0.5 mg 01/22/21 21:00 Risperidone 0.5 Mg Tablet PO 01/23/21 09:01 BID DICK Sertraline HCl 50 mg 01/19/21 12:30 01/22/21 08:21 Sertraline Hcl 50 Mg Tablet PO 50 mg DAILY DICK Administration Trazodone HCl 50 mg 01/19/21 17:47 Trazodone Hcl 50 Mg Tablet PO BEDTIME PRN Insomnia Allergies Allergies Allergy/AdvReac Type Severity Reaction Status Date / Time No Known Allergies Allergy Unverified 03/16/20 16:37 Assessment & Plan Assessment & Plan (1) Severe recurrent major depressive disorder with psychosis: Status: Acute Code(s): F33.3 - Major depressive disorder, recurrent, severe with psychotic symptoms Assessment and Plan: 1. continue sertraline 2. taper and DC seroquel and risperidone as very likely to cause weight gain unacceptable to this patient. initiate trial of abilify 01/23. Greater than 50% of the session was spent on counseling and/or coordination of care Reason for contiued inpatient stay Substantial Risk for: harm to self
--- NOTE | 2021-01-22 13:14 | MHC.CLN ---
NUTRITION PER ADM RISK ASSESSMENT, NUTRITION RISK DUE TO ANOREXIA. VISITED WITH PATIENT. REPORTS THAT CURRENT APPETITE AND INTAKE IS GOOD. NO WEIGHT LOSS REPORTED.
--- NOTE | 2021-01-22 17:14 | PC.NURSE ---
Pt admitted on 01/19/2021 at 1845 from ED after feeling SI. Pt reports having a child 3 years ago and has been hearing CH to kill/hurt her children since then. Pt is cooperative with admission, asking to go to bed as she was tired from the medicine
[2021-01-22 20:10] VITALS: BP 143/90; PULSE 91; RESP 18; TEMP 36.8; O2SAT 98
[2021-01-22 20:15] VITALS: BP 143/90; PULSE 91
[2021-01-22] MEDS: risperiDONE 0.5 MG TABLET PO (20:15)
[2021-01-22] MEDS: QUEtiapine Fumarate 25 MG TABLET PO (20:15)
[2021-01-22] MEDS: Prazosin HCL 1 MG CAPSULE PO (20:15)
[2021-01-23] MEDS: LORazepam 0.5 MG TABLET 1 MG PO (04:31)
[2021-01-23 06:00] VITALS: BP 152/73; PULSE 96; RESP 16; TEMP 36.8; O2SAT 99
[2021-01-23] MEDS: Sertraline HCL 50 MG TABLET PO (09:13)
[2021-01-23] MEDS: ARIPiprazole 2 MG TABLET PO (09:13)
[2021-01-23] MEDS: risperiDONE 0.5 MG TABLET PO (09:14)
[2021-01-23] MEDS: Nitrofurantoin Monohyd/M-Cryst 100 MG CAPSULE PO ×2 (09:14→20:50)
--- NOTE | 2021-01-23 13:45 | HO.PSYCHPN ---
Subjective Subjective Date of Service: 01/23/21 Reason For Visit: SI Interim History: met with pt and parents at pt request. parents were interested in hearing about medication changes. MD stepped through the various medications, changes, and rationales with them and pt. pt agreeable to increase abilify dosing, havcing experienced no side effects from having taken it today. review taper of seroquel and risperidone. parents wanting to know about length of stay, discharge plan. per staff, attending groups, spent time with OT. boyfriend visited yesterday morning. denies SI/HI. up at 0430 c/o racing thoughts. Mental Status Exam Mental Status Exam Narrative: appropriately dressed and groomed. no PMA/PMR. cooperative. speech nml in rate, loudness, tone, amount, latency. thoughts linear and logical. affect flexible, normo-intense, non-labile. no SI/HI/AVH expressed. Diagnostics Vital Signs (24Hr): Vital Signs - 24 hr 01/22/21 20:10 01/22/21 20:15 01/23/21 06:00 Temperature 98.2 F 98.3 F Pulse Rate 91 91 96 Respiratory Rate 18 16 Blood Pressure 143/90 H 143/90 H 152/73 H Pulse Oximetry 98 99 Body Mass Index 29.3 Labs Results: 01/19/21 11:09 01/19/21 11:29 Labs: Laboratory Results - last 48 hr 01/20/21 06:39 Vitamin B12 235 Folate 16.4 Medications Medications Current Medications Generic Name Dose Route Start Last Admin Trade Name Freq PRN Reason Stop Dose Admin Acetaminophen 650 mg 01/19/21 17:47 Acetaminophen 325 Mg Tablet PO Q6H PRN Headache/Pain Mild Scale (1-3) Al Hydroxide/Mg Hydroxide 30 ml 01/19/21 17:47 Magnesium Hydrox/Alum Hydrox 30 Ml Oral.Susp PO Q6H PRN Heartburn/Nausea Aripiprazole 2 mg 01/23/21 09:00 01/23/21 09:13 Aripiprazole 2 Mg Tablet PO 2 mg DAILY DICK Administration Hydroxyzine HCl 25 mg 01/19/21 17:47 Hydroxyzine Hcl 25 Mg Tablet PO BEDTIME PRN Anxiety Lorazepam 1 mg 01/20/21 12:40 01/23/21 04:31 Lorazepam 0.5 Mg Tablet PO 1 mg Q6H PRN Administration anxiety Magnesium Hydroxide 30 ml 01/19/21 17:47 Milk Of Magnesia 30 Ml Oral.Susp PO DAILY PRN Constipation Nitrofurantoin Macrocrystals 100 mg 01/19/21 13:00 01/23/21 09:14 Nitrofurantoin Monohyd/M-Cryst 100 Mg Capsule PO 01/23/21 21:01 100 mg BID DICK Administration Prazosin HCl 1 mg 01/19/21 21:00 01/22/21 20:15 Prazosin Hcl 1 Mg Capsule PO 1 mg BEDTIME DICK Administration Protocol Quetiapine Fumarate 12.5 mg 01/23/21 21:00 Quetiapine Fumarate 25 Mg Tablet PO 01/24/21 09:00 BEDTIME DICK Sertraline HCl 50 mg 01/19/21 12:30 01/23/21 09:13 Sertraline Hcl 50 Mg Tablet PO 50 mg DAILY DICK Administration Trazodone HCl 50 mg 01/19/21 17:47 Trazodone Hcl 50 Mg Tablet PO BEDTIME PRN Insomnia Allergies Allergies Allergy/AdvReac Type Severity Reaction Status Date / Time No Known Allergies Allergy Unverified 03/16/20 16:37 Assessment & Plan Assessment & Plan (1) Severe recurrent major depressive disorder with psychosis: Status: Acute Code(s): F33.3 - Major depressive disorder, recurrent, severe with psychotic symptoms Assessment and Plan: 1. continue sertraline 2. taper and DC seroquel and risperidone as of 01/24 as very likely to cause weight gain unacceptable to this patient. initiated trial of abilify 01/23 at 2 mg, increased dose to 5 mg as of 01/24. Greater than 50% of the session was spent on counseling and/or coordination of care Reason for contiued inpatient stay Substantial Risk for: harm to self, inability to function and rapid decompensation
[2021-01-23 20:49] VITALS: BP 136/95; PULSE 72
[2021-01-23] MEDS: Prazosin HCL 1 MG CAPSULE 2 MG PO (20:49)
[2021-01-23] MEDS: QUEtiapine Fumarate 25 MG TABLET 12.5 MG PO (20:50)
[2021-01-23 20:56] VITALS: BP 136/95; PULSE 72; TEMP 36.4; O2SAT 99
--- NOTE | 2021-01-23 23:48 | PC.NURSE ---
control patch-asking if hospital pharmacy carries patch. asked to have family bring it in. patch evident on outer aspect upper arm.
[2021-01-24 06:00] VITALS: BP 131/83; PULSE 90; RESP 16; TEMP 36.4; O2SAT 99
[2021-01-24] MEDS: LORazepam 0.5 MG TABLET 1 MG PO (06:33)
[2021-01-24] MEDS: Sertraline HCL 50 MG TABLET PO (08:56)
[2021-01-24] MEDS: ARIPiprazole 5 MG TABLET PO (08:57)
--- NOTE | 2021-01-24 13:25 | HO.PSYCHPN ---
Subjective Subjective Date of Service: 01/24/21 Reason For Visit: SI Interim History: pt reports feeling well and is interested in discharge tomorrow. she had some difficulty sleeping which she is concerned will be chronic, although MD pointed out that coming off of the seroquel and risperidone might briefly exacerbate any insomnia as they are sedating. pt agreed to scheduled trazodone at , which she reports she has had in the past but cannot recall how she did on it, and there is to be a second dose available as needed. pt would like to plan for noon discharge tomorrow. her thoughts have improved very much since admission. Mental Status Exam Mental Status Exam Narrative: appropriately dressed and groomed. no PMA/PMR. cooperative. speech nml in rate, loudness, tone, amount, latency. thoughts linear and logical. affect flexible, normo-intense, non-labile. no SI/HI/AVH expressed. Diagnostics Vital Signs (24Hr): Vital Signs - 24 hr 01/23/21 20:49 01/23/21 20:56 01/24/21 06:00 Temperature 97.5 F 97.5 F Pulse Rate 72 72 90 Respiratory Rate 16 Blood Pressure 136/95 H 136/95 H 131/83 Pulse Oximetry 99 99 Body Mass Index 29.3 Labs Results: 01/19/21 11:09 01/19/21 11:29 Medications Medications Current Medications Generic Name Dose Route Start Last Admin Trade Name Freq PRN Reason Stop Dose Admin Acetaminophen 650 mg 01/19/21 17:47 Acetaminophen 325 Mg Tablet PO Q6H PRN Headache/Pain Mild Scale (1-3) Al Hydroxide/Mg Hydroxide 30 ml 01/19/21 17:47 Magnesium Hydrox/Alum Hydrox 30 Ml Oral.Susp PO Q6H PRN Heartburn/Nausea Aripiprazole 5 mg 01/24/21 09:00 01/24/21 08:57 Aripiprazole 5 Mg Tablet PO 5 mg DAILY DICK Administration Hydroxyzine HCl 25 mg 01/19/21 17:47 Hydroxyzine Hcl 25 Mg Tablet PO BEDTIME PRN Anxiety Lorazepam 1 mg 01/20/21 12:40 01/24/21 06:33 Lorazepam 0.5 Mg Tablet PO 1 mg Q6H PRN Administration anxiety Magnesium Hydroxide 30 ml 01/19/21 17:47 Milk Of Magnesia 30 Ml Oral.Susp PO DAILY PRN Constipation Prazosin HCl 2 mg 01/23/21 21:00 01/23/21 20:49 Prazosin Hcl 1 Mg Capsule PO 2 mg BEDTIME DICK Administration Protocol Sertraline HCl 50 mg 01/19/21 12:30 01/24/21 08:56 Sertraline Hcl 50 Mg Tablet PO 50 mg DAILY DICK Administration Trazodone HCl 50 mg 01/19/21 17:47 Trazodone Hcl 50 Mg Tablet PO BEDTIME PRN Insomnia Trazodone HCl 50 mg 01/24/21 21:00 Trazodone Hcl 50 Mg Tablet PO BEDTIME DICK Allergies Allergies Allergy/AdvReac Type Severity Reaction Status Date / Time No Known Allergies Allergy Unverified 03/16/20 16:37 Assessment & Plan Assessment & Plan (1) Severe recurrent major depressive disorder with psychosis: Status: Acute Code(s): F33.3 - Major depressive disorder, recurrent, severe with psychotic symptoms Assessment and Plan: 1. continued sertraline 50 mg daily. 2. tapered and DCed seroquel and risperidone as of 01/24 as very likely to cause weight gain unacceptable to this patient. initiated trial of abilify 01/23 at 2 mg, increased dose to 5 mg as of 01/24. no problematic side effects during transition aside from possibly insomnia, and good effect of medications on pt's thoughts. trazodone 50 mg QHS with 50 mg QHS PRN added for insomnia 01/24. 3. planning for discharge to outpt care 01/25. Greater than 50% of the session was spent on counseling and/or coordination of care Reason for contiued inpatient stay Substantial Risk for: harm to self and inability to function
[2021-01-24 21:07] VITALS: BP 135/91; PULSE 77; TEMP 36.4; O2SAT 99
[2021-01-24 21:15] VITALS: BP 135/91; PULSE 77
[2021-01-24] MEDS: Prazosin HCL 1 MG CAPSULE 2 MG PO (21:15)
[2021-01-24] MEDS: traZODone HCL 50 MG TABLET PO (21:15)
[2021-01-25 06:00] VITALS: BP 132/88; PULSE 84; RESP 16; TEMP 36.8; O2SAT 99
[2021-01-25] MEDS: Sertraline HCL 50 MG TABLET PO (08:32)
[2021-01-25] MEDS: ARIPiprazole 5 MG TABLET PO (08:32)
--- NOTE | 2021-01-25 11:32 | PM.PSYDC ---
DS: Providers Provider Date of Service: 01/25/21 Date of admission: 01/19/21 17:47 Date of discharge: 01/25/21 Primary care physician: Unknown Physician DS: Diagnosis Discharge Diagnosis (1) Severe recurrent major depressive disorder with psychosis: Status: Acute DS: Medications Discharge Medications Home Medications: Previous Rx's Medication Instructions Recorded Xulane 1 patch TRANSDERMAL We #1 patch 01/25/21 aripiprazole 5 mg tablet (Abilify) 5 mg PO DAILY 30 Days #30 tab 01/25/21 prazosin 1 mg capsule 2 mg PO BEDTIME 30 Days #60 cap 01/25/21 sertraline 50 mg tablet 50 mg PO DAILY 30 Days #30 tab 01/25/21 trazodone 50 mg tablet 50 mg PO BEDTIME 30 Days #30 tab 01/25/21 Mental Status Exam Mental Status Exam Narrative: appropriately dressed and groomed. no PMA/PMR. cooperative. speech nml in rate, loudness, tone, amount, latency. thoughts linear and logical. affect flexible, normo-intense, non-labile. mood euthymic. no SI/HI/AVH. Data Data Completed and Pending Completed studies during hospitalization [Text1]: 01/19/21 01/19/21 01/19/21 11:09 11:09 11:09 WBC 5.6 RBC 4.95 Hgb 14.1 Hct 41.2 MCV 83.2 MCH 28.5 MCHC 34.2 RDW 12.1 Plt Count 368 MPV 9.0 L Immature Gran % (Auto) 0.2 Neut % (Auto) 72.0 Lymph % (Auto) 21.1 [place] % (Auto) 5.3 Eos % (Auto) 0.5 Baso % (Auto) 0.9 Lymph # (Auto) 1.2 [place] # (Auto) 0.3 Eos # (Auto) 0.0 Baso # (Auto) 0.1 Abs Immat Gran (auto) 0.01 Absolute Neuts (auto) 4.1 Absolute Nucleated RBC 0.000 Nucleated RBC % (auto) 0.0 Sodium Potassium Chloride Carbon Dioxide Anion Gap BUN Creatinine Estim Creat Clear Calc Estimated GFR Random Glucose Estimat Average Glucose Hemoglobin A1c % Lactic Acid Calcium Magnesium Total Bilirubin AST ALT Alkaline Phosphatase Total Protein Albumin Triglycerides Cholesterol LDL Cholesterol, Calc HDL Cholesterol Vitamin B12 Folate TSH Beta HCG, Quant Urine Color YELLOW Urine Appearance CLOUDY Urine pH 6.0 Ur Specific [place] >= 1.030 H Urine Protein TRACE Urine Glucose (UA) NEG Urine Ketones 5 Urine Blood NEG Urine Nitrite POS H Ur Leukocyte Esterase 1+ H Urine RBC 0 Urine WBC 15-29 H Ur Squamous Epith Cells TRACE Calcium Oxalate Crystal TRACE Urine Bacteria 4+ Urine Opiates Screen Not Detected Ur Barbiturates Screen Not Detected Ur Phencyclidine Scrn Not Detected Ur Amphetamines Screen Not Detected U Benzodiazepines Scrn Not Detected Urine Cocaine Screen Not Detected U Marijuana (THC) Screen Not Detected Ethyl Alcohol COVID-19 (ALLEN) COVID-19 [employer] 01/19/21 01/19/21 01/19/21 11:29 11:29 11:29 WBC RBC Hgb Hct MCV MCH MCHC RDW Plt Count MPV Immature Gran % (Auto) Neut % (Auto) Lymph % (Auto) [place] % (Auto) Eos % (Auto) Baso % (Auto) Lymph # (Auto) [place] # (Auto) Eos # (Auto) Baso # (Auto) Abs Immat Gran (auto) Absolute Neuts (auto) Absolute Nucleated RBC Nucleated RBC % (auto) Sodium 140 Potassium 4.5 Chloride 104 Carbon Dioxide 24 Anion Gap 17 BUN 13 Creatinine 0.86 Estim Creat Clear Calc 113.9 Estimated GFR > 60 Random Glucose 106 Estimat Average Glucose Hemoglobin A1c % Lactic Acid 1.0 Calcium 10.3 H Magnesium 2.1 Total Bilirubin 0.7 AST 15 ALT 16 Alkaline Phosphatase 54 Total Protein 8.3 H Albumin 4.6 Triglycerides Cholesterol LDL Cholesterol, Calc HDL Cholesterol Vitamin B12 Folate TSH Beta HCG, Quant < 2 Urine Color Urine Appearance Urine pH Ur Specific [place] Urine Protein Urine Glucose (UA) Urine Ketones Urine Blood Urine Nitrite Ur Leukocyte Esterase Urine RBC Urine WBC Ur Squamous Epith Cells Calcium Oxalate Crystal Urine Bacteria Urine Opiates Screen Ur Barbiturates Screen Ur Phencyclidine Scrn Ur Amphetamines Screen U Benzodiazepines Scrn Urine Cocaine Screen U Marijuana (THC) Screen Ethyl Alcohol COVID-19 ([facility]EN) COVID-[employer] 01/19/21 01/19/21 01/20/21 11:29 17:44 06:39 WBC RBC Hgb Hct MCV MCH MCHC RDW Plt Count MPV Immature Gran % (Auto) Neut % (Auto) Lymph % (Auto) [place] % (Auto) Eos % (Auto) Baso % (Auto) Lymph # (Auto) [place] # (Auto) Eos # (Auto) Baso # (Auto) Abs Immat Gran (auto) Absolute Neuts (auto) Absolute Nucleated RBC Nucleated RBC % (auto) Sodium Potassium Chloride Carbon Dioxide Anion Gap BUN Creatinine Estim Creat Clear Calc Estimated GFR Random Glucose Estimat Average Glucose 105 Hemoglobin A1c % 5.3 Lactic Acid Calcium Magnesium Total Bilirubin AST ALT Alkaline Phosphatase Total Protein Albumin Triglycerides Cholesterol LDL Cholesterol, Calc HDL Cholesterol Vitamin B12 Folate TSH Beta HCG, Quant Urine Color Urine Appearance Urine pH Ur Specific [place] Urine Protein Urine Glucose (UA) Urine Ketones Urine Blood Urine Nitrite Ur Leukocyte Esterase Urine RBC Urine WBC Ur Squamous Epith Cells Calcium Oxalate Crystal Urine Bacteria Urine Opiates Screen Ur Barbiturates Screen Ur Phencyclidine Scrn Ur Amphetamines Screen U Benzodiazepines Scrn Urine Cocaine Screen U Marijuana (THC) Screen Ethyl Alcohol < 10 COVID-19 ([facility]EN) Negative COVID-19 Clin Com See Note 01/20/21 01/20/21 06:39 06:39 WBC RBC Hgb Hct MCV MCH MCHC RDW Plt Count MPV Immature Gran % (Auto) Neut % (Auto) Lymph % (Auto) [place] % (Auto) Eos % (Auto) Baso % (Auto) Lymph # (Auto) [place] # (Auto) Eos # (Auto) Baso # (Auto) Abs Immat Gran (auto) Absolute Neuts (auto) Absolute Nucleated RBC Nucleated RBC % (auto) Sodium Potassium Chloride Carbon Dioxide Anion Gap BUN Creatinine Estim Creat Clear Calc Estimated GFR Random Glucose Estimat Average Glucose Hemoglobin A1c % Lactic Acid Calcium Magnesium Total Bilirubin AST ALT Alkaline Phosphatase Total Protein Albumin Triglycerides 120 Cholesterol 252 LDL Cholesterol, Calc 162 HDL Cholesterol 66 Vitamin B12 235 Folate 16.4 TSH 0.94 Beta HCG, Quant Urine Color Urine Appearance Urine pH Ur Specific [place] Urine Protein Urine Glucose (UA) Urine Ketones Urine Blood Urine Nitrite Ur Leukocyte Esterase Urine RBC Urine WBC Ur Squamous Epith Cells Calcium Oxalate Crystal Urine Bacteria Urine Opiates Screen Ur Barbiturates Screen Ur Phencyclidine Scrn Ur Amphetamines Screen U Benzodiazepines Scrn Urine Cocaine Screen U Marijuana (THC) Screen Ethyl Alcohol COVID-19 ([facility]) COVID-19 Clin Com 01/19/21 Unknown Urine clean catch - Urine m[place] top Urine Culture - Final DS: Summary Hospital Course Hospital Course: erin Bhakta APRN 01/20 H&P: Ms. Dyer is a 25 year-old woman with hx of depression and psychosis who was brought in by family due to thoughts of wanting to harm her children then guilt for having these thoughts and passive suicidal ideation. In the ED, her utox was negative. On the unit, Ms. Dyer reports that she has been feeling increasingly more anxious and worried that something bad may happen to her children. She reports poor sleep and poor appetite. She reports seeing images of terrible things happening to her children. She denies hearing voices but states she has intrusive thoughts of ideas of harming her children, which are very distressing to her. This is her first inpatient psychiatric admission but reports similar incident happened about 2 years ago. Past Psychiatric History: Inpatient: none prior OP: none Suicide attempts: none Past medication trials: seroquel, sertraline per Livia LANE 01/21 Progress Note: Pt reports feeling less anxious and having less images of children being hurt. She reports continues to have intrusive thoughts telling her that she may hurt her children. She denies SI/HI. She reports slightly better sleep. She ahs been visible at times in the unit and social with roommate. She continues to pray with bible. No behavioral concerns. she is taking medications as prescribed. No side effects noted. per Amadeo GAGNON 01/22 Progress Note: pt presents as well-related, appreciate, superficially cheerful.? states she has been struggling with whispers, which she recognizes as products of her own head and not the voice of any separate entity, of terrible things happening to her children and then becoming ruminative on those thoughts.? she had been on seroquel until 7-9 months ago, when she stopped it due to weight gain.? she was recently at the [facility], where the seroquel 50 at bedtime was restarted (and also sertraline 50 mg daily), and then she was admitted here.? she was started on risperidone 1 mg BID which has been helpful for her to reduce the whispers over the weekend.? pt reads to from a book her boyfriend brought in for her about a CBT approach to managing intrusive unwanted thoughts.? she has felt extremely helped by it, relieved by the reading of it, and identifies with many of its observations.? she describes a FH where both her brother and mother are diagnosed with borderline personality disorder and her mother with bipolar disorder.? she denies any trauma history and states she has been sleeping well without nightmares over the weekend. in light of her h/o bulimia and anorexia in HS and her discontinuation of previous med trial due to weight gain, the options of abilify and geodon, weight neutral neuroleptics, were discussed.? pt agreed to trial of abilfy and to taper of seroquel and risperidone in the next couple of days. per Amadeo GAGNON 01/23 Progress Note: met with pt and parents at pt request.? parents were interested in hearing about medication changes.? MD stepped through the various medications, changes, and rationales with them and pt.? pt agreeable to increase abilify dosing, havcing experienced no side effects from having taken it today.? review taper of seroquel and risperidone.? parents wanting to know about length of stay, discharge plan.? per staff, attending groups, spent time with OT.? boyfriend visited yesterday morning.? denies SI/HI.? up at 0430 c/o racing thoughts. per Amadeo GAGNON 01/24 Progress Note: pt reports feeling well and is interested in discharge tomorrow.? she had some difficulty sleeping which she is concerned will be chronic, although MD pointed out that coming off of the seroquel and risperidone might briefly exacerbate any insomnia as they are sedating.? pt agreed to scheduled trazodone at , which she reports she has had in the past but cannot recall how she did on it, and there is to be a second dose available as needed.? pt would like to plan for noon discharge tomorrow.? her thoughts have improved very much since admission. 01/25: safe, slept well on scheduled trazodone, ready for discharge to outpt care. Precis: 1. continued sertraline 50 mg daily. 2. tapered and DCed seroquel and risperidone? as of 01/24 as very likely to cause weight gain unacceptable to this patient.? initiated trial of abilify 01/23 at 2 mg, increased dose to 5 mg as of 01/24.? no problematic side effects during transition aside from possibly insomnia, and good effect of medications on pt's thoughts.? trazodone 50 mg QHS with 50 mg QHS PRN added for insomnia 01/24. 3. discharged to outpt care 01/25. Time Spent with Patient Time attestation: Total time spent providing and/or coordinating discharge services: Discharge Plan Discharge Patient Disposition: Home, Self-Care Discharge Diagnosis: Major Depressive Disorder Referrals: Fred Ospina (therapy) [Other] - 01/27/21 10:00 am (Telehealth Appointment) Thuy Hall (psychiatry) [Other] - 02/13/21 10:40 am (Telehealth Appointment Psychiatric Evaluation ) Thuy Hall (psychiatry) [Other] - 03/12/21 11:40 am (Telehealth Appointment Medication Management ) Samir Coy PA-C [Physician Pl[employer] Apprentice] - 1 Week Discharge Medications: New trazodone 50 mg Tablet 50 mg PO BEDTIME 30 Days Qty: 30 RF: 0 prazosin 1 mg Capsule 2 mg PO BEDTIME 30 Days Qty: 60 RF: 0 sertraline 50 mg Tablet 50 mg PO DAILY 30 Days Qty: 30 RF: 0 aripiprazole [Abilify] 5 mg Tablet 5 mg PO DAILY 30 Days Qty: 30 RF: 0 Xulane 1 patch transdermal We Qty: 1 RF: 0 Discontinued prazosin 1 mg capsule 1 cap PO BEDTIME RF: 0 sertraline 25 mg tablet 1 tab PO BEDTIME RF: 0 sertraline 50 mg tablet 1 tab PO DAILY RF: 0 quetiapine 50 mg tablet 50 mg PO ONCE PRN (Reason: Insomnia) RF: 0 quetiapine 25 mg Tablet 25 mg PO BID PRN (Reason: Agitation) RF: 0 Discharge Orders: Discharge Order (Routine); Ordered 01/25/21 Ordered By: Med Childs Diet: advance to usual diet Activity on Discharge: As tolerated Stand Alone Forms: Patient Portal Discharge page, Community Support Care Plan Goals: maintain independent living Health Concerns: none Plan of Treatment: attend appointments as scheduled, take medication as prescribed. Assessment: not at imminent risk of harm to self or others. Discharge Date/Time: 01/25/21 12:02
--- NOTE | 2021-01-25 11:40 | PC.NURSE ---
Patient is alert, fully oriented, pleasant and cooperative with discharge process. Patient denies any current ideation, plan or intent to harm herself or others including her children. Affect is bright, she denies depressed mood. She reports sleep and appetite are good. Focus is notably good. Patient denies anxiety but reports she is excited to go home. She verbalizes a number of supports she can use including family and therapist. She is able to verbalize understanding of crisis management including crisis numbers. After teaching she verbalized understanding of presxribed medication regime. She reports a plan to remain compliant wt current regime. She denies current physical complaint.
== END 2021-01-25 12:02 | disposition home or self-care (01) | DRG 751 ==
LOC: HO.ED 10:50 → HO.PADLT16 18:04
PROVIDERS: Physician Assistant Medical; Admitting Provider Social Worker; Emergency Provider Emergency Medicine Emergency Medical Services; Visit Provider Social Worker
DX: F33.3 Major depressive disorder, recurrent, severe with psychotic symptoms (principal); R45.851 Suicidal ideations; Z20.822 Contact with and (suspected) exposure to COVID-19; Z79.899 Other long term (current) drug therapy
CPT/HCPCS: 36415; 80053; 80061; 80307; 81001; 81003; 82077; 82607; 82746; 83036; 83605; 83735; 84443; 84702; 85025; 87086; 87635; 93005; 99283

== ENCOUNTER 2021-09-14 23:32 | Emergency (ER) | payer OTHER, SELFPAY ==
[2021-09-15 00:14] VITALS: BP 140/88; PULSE 97; RESP 16; TEMP 36.9; O2SAT 98; BMI 34.7
--- NOTE | 2021-09-15 01:45 | ED_ITS ---
HPI - Allergic Reaction General Chief complaint: Extremity Problem Stated complaint: Hives/Med Reaction Time Seen by Provider: 09/15/21 01:40 Source: patient Mode of arrival: ambulatory Limitations: no limitations History of Present Illness HPI narrative: patient had UTI started started on nitrofurantoin 3 days ago within 24 hours of taking the medication patient noticed a rash all over the body she stop the nitrofurantoin still she has itching took Benadryl no shortness of breath no tongue swelling no difficulty in breathing Related Data Previous Rx's Medication Instructions Recorded Xulane 1 patch TRANSDERMAL We #1 patch 01/25/21 aripiprazole 5 mg tablet (Abilify) 5 mg PO DAILY 30 Days #30 tab 02/07/21 sertraline 50 mg tablet 50 mg PO DAILY 30 Days #30 tab 02/07/21 trazodone 50 mg tablet 100 mg PO BEDTIME 30 Days #60 tab 04/05/21 prazosin 1 mg capsule 2 mg PO BEDTIME 30 Days #60 cap 04/18/21 cefuroxime axetil 250 mg tablet 250 mg PO BID 7 Days #14 tab 09/15/21 diphenhydramine HCl 25 mg capsule 50 mg PO Q6H PRN #30 cap 09/15/21 (Benadryl) prednisone 20 mg tablet 40 mg PO DAILY #10 tab 09/15/21 Allergies Allergy/AdvReac Type Severity Reaction Status Date / Time No Known Allergies Allergy Verified 02/12/21 17:23 Review of Systems Review of Systems: Yes all other systems are reviewed and are negative PMFSH Past Medical History Medical History Asthma Depression GERD (gastroesophageal reflux disease) Hypercholesterolemia Obesity (BMI 30-39.9) Surgical History History of section History of tonsillectomy [place] teeth removed Social History Social History Household Members: Spouse and Children Housing: House Do you presently have visiting nurse or other home services: No Patient Tobacco Use Status: Never used Tobacco Advance Directives: No Advance Directives Information Provided: No Patient : No service: No Current occupational status: unemployed Sexual orientation: Don't Know Physical Exam ED Vital Signs: Vital Signs - 24 hr 09/15/21 00:14 09/15/21 03:09 Temperature 98.5 F Pulse Rate 97 75 Respiratory Rate 16 16 Blood Pressure 140/88 H 117/66 Pulse Oximetry 98 98 BMI result Body Mass Index 34.7 Appearance: Alert. Oriented X3. No acute distress. ENT: Pharynx normal. Oral Mucosa moist Neck: Normal inspection. Neck supple. CVS: Normal heart rate and rhythm. Pulses normal. Respiratory: No respiratory distress. Equal air entry bilateral, Abdomen: Soft and nontender. Bowel sounds are present, no mass palpable, Skin: Skin warm and dry. Normal skin color. Normal skin turgor. macular rash all over the extremities and trunk area Extremities: No lower extremity edema. No calf tenderness Neuro: Oriented X 3. MDM - Allergic Reaction MDM Narrative Medical decision making narrative: patient with mild acute reaction to nitrofurantoin and responded to Benadryl and prednisone discharge patient home on prednisone and Benadryl for UTI will start patient on Ceftin Discharge Plan Discharge Clinical Impression: Allergic reaction caused by a drug Patient Disposition: Home, Self-Care Instructions: General Allergic Reaction (ED) Additional Instructions: stop taking nitrofurantoin Benadryl 50 mg every 6 hours for rash prednisone as prescribed antibiotic for UTI Prescriptions: New cefuroxime axetil 250 mg tablet 250 mg PO BID 7 Days Qty: 14 0RF diphenhydramine HCl [Benadryl] 25 mg capsule 50 mg PO Q6H PRN (Reason: allergic reaction) Qty: 30 0RF prednisone 20 mg tablet 40 mg PO DAILY Qty: 10 0RF No Action aripiprazole [Abilify] 5 mg tablet 5 mg PO DAILY 30 Days Qty: 30 0RF sertraline 50 mg tablet 50 mg PO DAILY 30 Days Qty: 30 0RF trazodone 50 mg tablet 100 mg PO BEDTIME 30 Days Qty: 60 2RF prazosin 1 mg capsule 2 mg PO BEDTIME 30 Days Qty: 60 3RF Protocol: Hold for SBP< HOLD for SBP < : 90 Xulane 1 patch transdermal We Qty: 1 0RF Interventions: ED Discharge Assessment Last Done: 09/15/21 03:21 Discharge Date/Time: 09/15/21 03:22
[2021-09-15 03:09] VITALS: BP 117/66; PULSE 75; RESP 16; O2SAT 98
[2021-09-15] MEDS: diphenhydrAMINE HCL 25 MG TABLET 50 MG PO (03:11)
[2021-09-15] MEDS: predniSONE 20 MG TABLET 60 MG PO (03:11)
[2021-09-15] MEDS: Famotidine 20 MG TABLET 40 MG PO (03:12)
== END 2021-09-15 03:22 | disposition home or self-care (01) ==
PROVIDERS: Emergency Provider Internal Medicine; PCP Physician Assistant
DX: R21 Rash and other nonspecific skin eruption (principal); T37.8X5A Adverse effect of other specified systemic anti-infectives and antiparasitics, initial encounter; Y92.019 Unspecified place in single-family (private) house as the place of occurrence of the external cause
CPT/HCPCS: 99283; 99284; Q0163

== ENCOUNTER → 2022-10-04 11:11 | Outpatient (BNVA) | payer SELFPAY | PROVIDERS: PCP Physician Assistant | DX: Z02.89 Encounter for other administrative examinations (principal) ==

== ENCOUNTER 2022-12-20 11:56 | Outpatient (REF) | payer OTHER, SELFPAY ==
[2022-12-20 12:59] LABS: Hematocrit 36.7 % (37.0-47.0); Hemoglobin 12.6 g/dl (12.0-16.0); Mean Corpuscular HGB Conc 34.3 g/dl (31.0-35.0); Mean Corpuscular Volume 84.6 fL (80.0-98.0); Mean Platelet Volume 9.5 fL (9.4-12.3); Platelet Count 255 X10*3/uL (160-400); Red Blood Count 4.34 X10*6/uL (4.20-5.50); Red Cell Distribution Width 12.4 % (11.0-16.0); White Blood Count 6.2 X10*3/uL (4.8-10.8)
[2022-12-20 13:42] LABS: Alanine Aminotransferase 6 U/L (0-31); Albumin Level 3.9 g/dL (3.5-5.0); Alkaline Phosphatase 39 U/L (39-117); Anion Gap 11 (12-20); Aspartate Amino Transferase 13 U/L (5-31); Bilirubin Total 0.5 mg/dL (0.0-1.0); Blood Urea Nitrogen 9 mg/dL (9-16); Calcium 9.5 mg/dL (8.4-10.2); Carbon Dioxide 25 mmol/L (22-29); Chloride 104 mmol/L (96-108); Estimated Glomerular Filt Rate > 60; Glucose Fasting 81 mg/dL (60-99); Potassium 3.9 mmol/L (3.3-5.1); Sodium 136 mmol/L (135-145); Total Protein 7.3 g/dL (6.5-8.0)
[2022-12-23 13:09] LABS: TS Negative Control Passed; TS Panel A 1; TS Panel B 0; TS Positive Control Passed; TSpotTB Negative (Negative)
== END 2022-12-20 11:57 | disposition home or self-care (01) ==
LOC: HO.LAB 11:56
PROVIDERS: PCP Physician Assistant; Visit Provider Physician Assistant
DX: Z13.1 Encounter for screening for diabetes mellitus (principal); Z11.1 Encounter for screening for respiratory tuberculosis
CPT/HCPCS: 36415; 80053; 85027; 86481

== ENCOUNTER → 2024-07-02 09:45 | Outpatient (BNV) | payer OTHER, SELFPAY | PROVIDERS: Visit Provider Psychiatry & Neurology Psychiatry | DX: F31.89 Other bipolar disorder (principal); F42.8 Other obsessive-compulsive disorder; F43.12 Post-traumatic stress disorder, chronic; F41.3 Other mixed anxiety disorders | CPT/HCPCS: 90792 ==

== ENCOUNTER 2024-07-12 08:24 | Outpatient (REF) | payer OTHER, SELFPAY ==
[2024-07-12 08:49] LABS: MANUAL DIFF FLAG NO
--- NOTE | 2024-07-12 08:53 | ECG_ITS ---
Test Reason : f39 Blood Pressure : */* mmHG Vent. Rate : 78 BPM Atrial Rate : 78 BPM P-R Int : 150 ms QRS Dur : 86 ms QT Int : 382 ms P-R-T Axes : 23 48 9 degrees QTcB Int : 435 ms Normal sinus rhythm Normal ECG When compared with ECG of 19-Jan-2021 12:38, No significant change was found Referred By: Alyssa Holliday Electronically Signed By: Mark Villegas
[2024-07-12 09:07] LABS: Basophils Absolute Auto 0.1 X10*3/uL (0.0-0.2); Basophils Percent Auto 0.9 % (0-2); Eosinophils Absolute Auto 0.2 X10*3/uL (0.0-0.4); Eosinophils Percent Auto 2.8 % (0-4); Hematocrit 37.2 % (37.0-47.0); Hemoglobin 13.2 g/dl (12.0-16.0); Imm Gran Abs Auto 0.03 X10*3/uL (0.00-0.03); Imm Gran Pct Auto 0.5 % (0.0-0.4); Mean Corpuscular HGB Conc 35.5 g/dl (31.0-35.0); Mean Corpuscular Hemoglobin 28.9 pg (27.0-33.0); Mean Corpuscular Volume 81.6 fL (80.0-98.0); Mean Platelet Volume 8.8 fL (9.4-12.3); Monocytes Absolute Auto 0.3 X10*3/uL (0.1-1.2); Monocytes Percent Auto 5.9 % (2-11); Neutrophils Absolute Auto 3.1 x10*3/uL (2.0-8.3); Neutrophils Percent Auto 54.9 % (45-73); Platelet Count 268 X10*3/uL (160-400); Red Blood Count 4.56 X10*6/uL (4.20-5.50); Red Cell Distribution Width 12.3 % (11.0-16.0); White Blood Count 5.6 X10*3/uL (4.8-10.8)
[2024-07-12 09:21] LABS: UPreg QC Valid YES; Urine Pregnancy POSITIVE (NEGATIVE)
[2024-07-12 09:29] LABS: Estimated Average Glucose 111 mg/dL; Hemoglobin A1C 122.5309 umol/L; Hemoglobin A1c % 5.5 % (<6.0)
[2024-07-12 09:34] LABS: Appearance Urine Clear; Color Urine Yellow; Glucose Urine UA 500 mg/dL (Negative); Leukocyte Esterase Urine Negative (Negative); Nitrite Urine Negative (Negative); PH 5.5 (5.0-9.0); Specific Gravity - Urine >= 1.030 (1.005-1.025); Urine Blood Negative (Negative); Urine Ketones Negative (Negative); Urine Protein Negative (Neg-Trace)
[2024-07-12 09:47] LABS: Alanine Aminotransferase 15 U/L (0-31); Albumin Level 4.4 g/dL (3.5-5.0); Alkaline Phosphatase 60 U/L (39-117); Anion Gap 10 (12-20); Aspartate Amino Transferase 21 U/L (5-31); Bilirubin Total 0.4 mg/dL (0.0-1.0); Blood Urea Nitrogen 9 mg/dL (9-16); Calcium 9.3 mg/dL (8.4-10.2); Carbon Dioxide 21 mmol/L (22-29); Chloride 108 mmol/L (96-108); Cholesterol 215 mg/dL (<200); Estimated Glomerular Filt Rate > 60; Glucose Fasting 100 mg/dL (60-99); HDL Cholesterol 59 mg/dL (>40); Iron 75 mcg/dL (30-160); LDL Cholesterol Calculated 143 mg/dL (<100); Magnesium 1.8 mg/dL (1.6-2.6); Percent Iron Saturation 29 % (15-50); Potassium 3.7 mmol/L (3.3-5.1); Sodium 135 mmol/L (135-145); Total Iron Binding Capacity 257 mcg/dL (228-428); Total Protein 7.7 g/dL (6.5-8.0); Triglycerides 67 mg/dL (<150); Unsaturated Iron Binding 182 ug/dL
[2024-07-12 09:49] LABS: Erythrocyte Sedimentation Rate 12 MM/HR (0-20)
[2024-07-12 10:06] LABS: Free T4 (Free Thyroxine) 0.94 ng/dL (0.71-1.85); Thyroid Stimulating Hormone 1.29 uIU/mL (0.32-4.0); Vitamin D 25-OH Total 13.9 ng/mL (>30)
[2024-07-12 10:19] LABS: Folate 13.5 ng/mL (> or = 4.0); Vitamin B12 237 pg/mL (200-900)
[2024-07-16 14:58] LABS: Vitamin B1 12 nmol/L (8-30)
[2024-07-18 16:10] LABS: Vitamin B6 10.5 ng/mL (2.1-21.7)
== END 2024-07-12 08:25 | disposition home or self-care (01) ==
LOC: HO.LAB 08:24
PROVIDERS: PCP Physician Assistant; Visit Provider Psychiatry & Neurology Psychiatry
DX: F39 Unspecified mood [affective] disorder (principal)
CPT/HCPCS: 36415; 80053; 80061; 81003; 81025; 82306; 82607; 82746; 83036; 83090; 83540; 83735; 84207; 84425; 84439; 84443; 85025; 85652; 93005

== ENCOUNTER → 2024-07-12 08:53 | Outpatient (BNV) | payer OTHER, SELFPAY | PROVIDERS: PCP Physician Assistant; Visit Provider Internal Medicine Cardiovascular Disease | DX: F39 Unspecified mood [affective] disorder (principal) | CPT/HCPCS: 93010 ==

== ENCOUNTER 2024-07-23 10:15 | Outpatient (RCR) | payer OTHER, SELFPAY ==
[2024-07-02 10:41] VITALS: BP 122/68; PULSE 64; TEMP 36.8; BMI 34.2
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
--- NOTE | 2024-07-08 14:40 | HO.PHP ---
Client's case has been opened and reviewed in team.
--- NOTE | 2024-07-08 23:37 | P.PNPSP_ITS ---
Subjective Subjective Date of Service: 07/08/24 Reason For Visit: MDD Interim History: Things been okay Mood is still up and down, irritability also comes and goes. No severe lows in past couple of days. Gisela has increased appetite and is harder to curb eating, energy is low and feels it does make her drag in the first half of the day but feels waking early for program helping, benefiting from structure of program. Been getting in better routine. SHe is open to starting on Lamictal to address depression and mood instability, anxiety. She is reminded to also get lab work done, she wont be in tomorrow. WIll do next week. Denies any thoughts of harming self or others. Medication Compliance: Yes Side effects from medications: No Attending Groups: Yes Review of Systems Acute medical concerns: No Medical Review of Systems: unchanged Mental Status Exam Mental Status Exam Narrative: Alert, oriented, in no acute distress. Calm, cooperative, engaged, friendly. Animated, no psychomotor restlessness, agitation or neurovegetative retardation. Eye contact maintained. Mood anxious, affect variable, brighter than expected, mood congruent. Speech normal. Thought process linear, coherent. Thought content related to stressors, intrusive thoughts, irritability, mood instability, denies any impulsive behaviors, denies any hopelessness or SI. Denies any aggressive ideation or HI. No paranoia or delusional content elicited. No evidence of psychosis. Insight and judgment - fair but adequate. Diagnostics Vital Signs (24Hr): BMI result Body Mass Index 34.2 Assessment & Plan Assessment & Plan (1) Other bipolar disorders: Status: Acute Code(s): F31.89 - Other bipolar disorder (2) Other obsessive-compulsive disorder: Status: Acute Code(s): F42.8 - Other obsessive-compulsive disorder (3) Chronic post-traumatic stress disorder (PTSD): Status: Acute Code(s): F43.12 - Post-traumatic stress disorder, chronic (4) Other mixed anxiety disorders: Status: Acute Code(s): F41.3 - Other mixed anxiety disorders Plan start lamotrigine 25 mg qd (incr by 25 mg/d q 2 weeks until 100 mg/d) as lamotritine is optimized, sertraline and quetiapine may be reduced/tapered continue sertraline 50 mg qd continue quetiapine 50 mg qhs continue quetiapine 25-50 mg prn agitation continue clonidine 0.05 mg (1/2 tablet) TID prn anxiety, slepe we discussed starting lamotrigine to target obsessive-compulsive symptoms, mood instability, patient will consider continue other regular medications?- control patch Routine lab work order and routine EKG pending EKG, routine for baseline QTc for medication considerations as indicated UDS as indicated VS reviewed: abrefile, BP 122/68;?64 bpm Continue to monitor Patient educated on: diagnosis and medication risk/benefits Informed Consent: understands Reason for contiued partial hosp. stay Substantial Risk for: inability to function, rapid decompensation and med/psych decompensation Certification I certify that partial hospital treatment is medically necessary due to the symptoms and problems resulting from the patient's mental illness and the failure to treat the patient at the partial hospital level of care would likely result in the patient requiring inpatient psychiatric care which could not be prevented at a less intensive level of care. Total time managing care of this patient today __30__ minutes. Discharge Plan Discharge Attending provider: Alyssa Holliday Medications: New diphenhydramine HCl 25 mg capsule 25 - 50 mg PO BEDTIME PRN (Reason: sleep) Qty: 30 0RF Vitamin 27 mg iron- 800 mcg tablet 1 tab PO DAILY Qty: 30 0RF Continued Xulane 150-35 mcg/24 hr patch weekly 1 patch topical QWEEK 21 Days Qty: 3 0RF Rx Instructions: One patch every week. clonidine HCl 0.1 mg Tablet 0.05 mg PO TID Rx Instructions: Take 1/2 tab TID. quetiapine [Seroquel] 25 mg Tablet 50 mg PO BEDTIME Qty: 30 0RF Patient Comments: Patient prescribed TID in the hospital however she stated she spoke to her psychiatric prescriber and not takes 50 mg at HS. Does not take during the day. sertraline 50 mg Tablet 50 mg PO DAILY Qty: 30 0RF No Action cholecalciferol (vitamin D3) 1,250 mcg (50,000 unit) Tablet 1,250 mcg PO QWEEK Print Language: Serbian
--- NOTE | 2024-07-09 11:13 | HO.PHP ---
PHP admin, Aminta, informed the team that Denise will not be in attendance to program today due to her stomach not feeling well. Aminta voiced that there were no safety concerns presented.
--- NOTE | 2024-07-13 23:21 | HO.PHPPROGNO ---
Subjective Subjective Date of Service: 07/13/24 Reason For Visit: MDD Interim History: Met with patient for follow-up. She informs me that she has not had the opportunity to picker and sorter load and unload and start on Lamictal. She reports having a stomach ache with n/v over weekend and was unable to get to the pharmacy to picker and sorter load and unload meds. . She says her child was also ill. She is feeling better today and otherwise reportedly things have been fine at home with and 13 yo and 6yo. She has had some difficulties falling asleep. Her lab work returned from yesterday with positive test which she came as a complete surprise to her and she immediately broke down crying. Feeling she has too much on her plate. She says that the baby is her , and denies any concern this may involve anyone outside the marriage. She explained that she feels unprepared to have another baby at this time, and is trying to get herself well. LMP was last month, she did not believe she was late yet, so feels very blindsided by the news. She is not on control but says they had been very careful and admits she has had some occasions of using Plan B as a means of control, intermittently using after she and her felt they were being risky . Last used over this past weekend. She understood that this is not a practical use of the medication and came with risks but did not want to be on control. I let her know whenever and whatever she decides, she would have my support and could help coordinate setting up any care (either way). She insists that termination of was not a consideration for her. I offered her a few moments to focus on breathing and then asked if she wanted to talk some more or if she felt the need to reach out to family or , and said this would be helpful. Used a private space to speak with her and returned. She was agreeable to having her mother pick her up from program. She says her was supportive and they'd figure things out . For now she was advised not to start on the lamotrigine (and that I would be canceling it at the pharmacy for the time being) and could be started on at some point in future when she is no longer . For the time being I ordered some diphenhydramine to help with sleep, and we can discuss medicaiton further next visit since she was still pretty emotional and overwhelmed. SHe denies any SI, only feeling overwhelmed and denies any thoughts of harming self or others. at this time. Medication Compliance: Yes Side effects from medications: No Attending Groups: Yes Review of Systems Acute medical concerns: No Mental Status Exam Mental Status Exam Narrative: Initially presented as calm, bright but quickly became overwhelmed by news of . Mood anxious, affect tearful, mood congruent. Speech normal. Thought process linear, coherent. Thought content related to stressors, overwhelmed by unexpected , denies any impulsive behaviors, denies any hopelessness or SI. Denies any aggressive ideation or HI. No paranoia or delusional content elicited. No evidence of psychosis. Insight and judgment - fair but adequate. Diagnostics Vital Signs (24Hr): BMI result Body Mass Index 34.2 Assessment & Plan Assessment & Plan (1) Other bipolar disorders: Status: Acute Code(s): F31.89 - Other bipolar disorder (2) Other obsessive-compulsive disorder: Status: Acute Code(s): F42.8 - Other obsessive-compulsive disorder (3) Chronic post-traumatic stress disorder (PTSD): Status: Acute Code(s): F43.12 - Post-traumatic stress disorder, chronic (4) Other mixed anxiety disorders: Status: Acute Code(s): F41.3 - Other mixed anxiety disorders (5) : Status: Acute Code(s): Z34.90 - Encounter for supervision of normal , unspecified, unspecified trimester Plan extend PHP will need to change treatment plan in light of positive she plans to discuss further with her vielka for now canceled script for lamotrigine (given positive ) she has not pick it up or started on this gave lab slip to recheck by serum hCG qual/quant start vitamins start diphenhydramine 25 mg qhs (perhaps could enable cutting back clonidine use and lowering dose of SGA or at least avoid increasing Seroquel for sleep issues) other considerations may involve perphenazine for mood stabilization if needed continue sertraline 50 mg qd continue quetiapine 50 mg qhs continue quetiapine 25-50 mg prn agitation continue clonidine 0.05 mg (1/2 tablet) TID prn anxiety, sleep continue other regular medications?- control patch Routine lab work reviewed - + urine, also low vit D (pt unclear if has rx for weekly vit d, will follow up) EKG, routine reviewed, no QTc prolongations and normal vs prior EKGs UDS as indicated Continue to monitor Patient educated on: diagnosis, medication risk/benefits and medical condition Informed Consent: understands Reason for contiued partial hosp. stay Substantial Risk for: inability to function and med/psych decompensation Certification I certify that partial hospital treatment is medically necessary due to the symptoms and problems resulting from the patient's mental illness and the failure to treat the patient at the partial hospital level of care would likely result in the patient requiring inpatient psychiatric care which could not be prevented at a less intensive level of care. Total time managing care of this patient today _45___ minutes. Discharge Plan Discharge Attending provider: Alyssa Holliday Medications: New diphenhydramine HCl 25 mg capsule 25 - 50 mg PO BEDTIME PRN (Reason: sleep) Qty: 30 0RF Vitamin 27 mg iron- 800 mcg tablet 1 tab PO DAILY Qty: 30 0RF Continued Xulane 150-35 mcg/24 hr patch weekly 1 patch topical QWEEK 21 Days Qty: 3 0RF Rx Instructions: One patch every week. clonidine HCl 0.1 mg Tablet 0.05 mg PO TID Rx Instructions: Take 1/2 tab TID. quetiapine [Seroquel] 25 mg Tablet 50 mg PO BEDTIME Qty: 30 0RF Patient Comments: Patient prescribed TID in the hospital however she stated she spoke to her psychiatric prescriber and not takes 50 mg at HS. Does not take during the day. sertraline 50 mg Tablet 50 mg PO DAILY Qty: 30 0RF No Action cholecalciferol (vitamin D3) 1,250 mcg (50,000 unit) Tablet 1,250 mcg PO QWEEK Print Language: Uzbek
--- NOTE | 2024-07-20 00:04 | P.PNPSP_ITS ---
Subjective Subjective Date of Service: 07/20/24 Reason For Visit: MDD Interim History: Doing better today. Was much brighter and future-oriented. She spoke with and family about . is very excited and supported about the news. She is feeling better and getting a handle on it and has started on the vitamins and scheduled an OBGYN appointment for this Friday. She is feeling well, no n/v or morning sickness at this time. She had briefly experienced some lower abdominal cramping a few days ago and then it passed. No spotting or bleeding. No edema, CP, SOB. Sleep has been relatively stable, even with lowering dose of Seroquel from 25 to 12.5 mg and addition of diphenhydramine [address] for sleep. SHe would like to see if she can taper off which she could try at the end of the week, but suggest we make it available PRN especially if needed for mood stability. Denies any hopelessness or SI. Medication Compliance: Yes Side effects from medications: No Attending Groups: Yes Review of Systems Acute medical concerns: No Mental Status Exam Mental Status Exam Narrative: Calm, oriented, no acute distress. Mood better , affect brighter, reactive no tearfulness or lability. More goal-directed, future-oriented. No evidence of thought disorder. No paranoid or delusional content elicited. Denies SI, HI, AH, VH. No mention of hopelessness or despair. Insight and judgment fair-good. Diagnostics Vital Signs (24Hr): BMI result Body Mass Index 34.2 Assessment & Plan Assessment & Plan (1) Other bipolar disorders: Status: Acute Code(s): F31.89 - Other bipolar disorder (2) Other obsessive-compulsive disorder: Status: Acute Code(s): F42.8 - Other obsessive-compulsive disorder (3) Chronic post-traumatic stress disorder (PTSD): Status: Acute Code(s): F43.12 - Post-traumatic stress disorder, chronic (4) Other mixed anxiety disorders: Status: Acute Code(s): F41.3 - Other mixed anxiety disorders (5) : Status: Acute Code(s): Z34.90 - Encounter for supervision of normal , unspecified, unspecified trimester Plan extend PHP will need to change treatment plan in light of positive she plans to discuss further with her tonight for now canceled script for lamotrigine (given positive ) she has not pick it up or started on this gave lab slip to recheck by serum hCG qual/quant start vitamins start diphenhydramine 25 mg qhs (perhaps could enable cutting back clonidine use and lowering dose of SGA or at least avoid increasing Seroquel for sleep issues) other considerations may involve perphenazine for mood stabilization if needed continue sertraline 50 mg qd continue quetiapine 50 mg qhs continue quetiapine 25-50 mg prn agitation continue clonidine 0.05 mg (1/2 tablet) TID prn anxiety, sleep continue other regular medications?- control patch Routine lab work reviewed - + urine, also low vit D (pt unclear if has rx for weekly vit d, will follow up) EKG, routine reviewed, no QTc prolongations and normal vs prior EKGs UDS as indicated Continue to monitor Patient educated on: diagnosis and medication risk/benefits Informed Consent: understands Reason for contiued partial hosp. stay Substantial Risk for: med/psych decompensation Certification I certify that partial hospital treatment is medically necessary due to the symptoms and problems resulting from the patient's mental illness and the failure to treat the patient at the partial hospital level of care would likely result in the patient requiring inpatient psychiatric care which could not be prevented at a less intensive level of care. Total time managing care of this patient today __30__ minutes. Discharge Plan Discharge Attending provider: Alyssa Holliday Medications: New diphenhydramine HCl 25 mg capsule 25 - 50 mg PO BEDTIME PRN (Reason: sleep) Qty: 30 0RF Vitamin 27 mg iron- 800 mcg tablet 1 tab PO DAILY Qty: 30 0RF cholecalciferol (vitamin D3) [Vitamin D3] 125 mcg (5,000 unit) tablet 125 mcg PO DAILY Qty: 30 0RF Continued Xulane 150-35 mcg/24 hr patch weekly 1 patch topical QWEEK 21 Days Qty: 3 0RF Rx Instructions: One patch every week. clonidine HCl 0.1 mg Tablet 0.05 mg PO TID Rx Instructions: Take 1/2 tab TID. quetiapine [Seroquel] 25 mg Tablet 50 mg PO BEDTIME Qty: 30 0RF Patient Comments: Patient prescribed TID in the hospital however she stated she spoke to her psychiatric prescriber and not takes 50 mg at HS. Does not take during the day. sertraline 50 mg Tablet 50 mg PO DAILY Qty: 30 0RF No Action cholecalciferol (vitamin D3) 1,250 mcg (50,000 unit) Tablet 1,250 mcg PO QWEEK Print Language: East Timorese
--- NOTE | 2024-07-23 23:47 | P.PNPSP_ITS ---
Subjective Subjective Date of Service: 07/23/24 Reason For Visit: MDD Interim History: Patient seen for follow-up, anticipating discharge at the end of program today.? Feeling tired, of course (because of the ). But my mood has been good . She is not ntoicing much fluctuation in mood. Her has been very supportive and she is responding positively. She has been sleeping well without using much for clonidine. When she does she has been only taking 1/2 tablet but days she has not needed it since we last met as the Benadryl suffices. She continues on the lower dose of Seoquel 25 mg She reports no acute issues or concerns. Medication compliant, medications well-tolerated. Denies any adverse effects.? Mood is stable.? Denies any hopelessness or SI. Denies thoughts of harming self or others at this time. Denies any aggressive ideation or HI. Denies any paranoia or AH or VH. Sleep, appetite, energy stable. Mental Status Exam Mental Status Exam Narrative: Alert, oriented, in no acute distress. Calm, cooperative. Mood stable, affect appropriate. Speech normal. Thought process linear, coherent, more goal- directed. Thought content related to stressors, future-oriented, denies any helplessness, hopelessness or SI.? No aggressive ideation or HI. No paranoia or delusional content elicited. No evidence of psychosis. Insight and judgment fair-good. Diagnostics Vital Signs (24Hr): BMI result Body Mass Index 34.2 Assessment & Plan Assessment & Plan (1) Other bipolar disorders: Status: Acute Code(s): F31.89 - Other bipolar disorder (2) Other obsessive-compulsive disorder: Status: Acute Code(s): F42.8 - Other obsessive-compulsive disorder (3) Chronic post-traumatic stress disorder (PTSD): Status: Acute Code(s): F43.12 - Post-traumatic stress disorder, chronic (4) Other mixed anxiety disorders: Status: Acute Code(s): F41.3 - Other mixed anxiety disorders (5) : Status: Acute Code(s): Z34.90 - Encounter for supervision of normal , unspecified, unspecified trimester Plan Discharge from [facility] Continue regular medications Refills sent to pharmacy Will defer further medication management to outpatient provider *Safety plan reviewed *Discharge diagnoses, treatment course, discharge plan have been reviewed with patient (including medication regime, medication management, potential side effects) as well as treatment rationale were also revisited *Discharge paperwork signed and given to patient, copy sent for scanning to chart Patient educated on: diagnosis and medication risk/benefits Informed Consent: understands Reason for contiued partial hosp. stay Substantial Risk for: stable for discharge Certification I certify that partial hospital treatment is medically necessary due to the symptoms and problems resulting from the patient's mental illness and the failure to treat the patient at the partial hospital level of care would likely result in the patient requiring inpatient psychiatric care which could not be prevented at a less intensive level of care. Total time managing care of this patient today __30__ minutes. Discharge Plan Discharge Attending provider: Alyssa Holliday Medications: New diphenhydramine HCl 25 mg capsule 25 - 50 mg PO BEDTIME PRN (Reason: sleep) Qty: 30 0RF Vitamin 27 mg iron- 800 mcg tablet 1 tab PO DAILY Qty: 30 0RF cholecalciferol (vitamin D3) [Vitamin D3] 125 mcg (5,000 unit) tablet 125 mcg PO DAILY Qty: 30 0RF Continued sertraline 50 mg Tablet 50 mg PO DAILY Qty: 30 0RF Changed quetiapine [Seroquel] 25 mg Tablet 50 mg PO BEDTIME PRN (Reason: agitation, insomnia) Qty: 30 0RF Patient Comments: Patient prescribed TID in the hospital however she stated she spoke to her psychiatric prescriber and not takes 50 mg at HS. Does not take during the day. clonidine HCl 0.1 mg Tablet 0.05 mg PO BID PRN (Reason: Anxiety) Qty: 14 0RF Rx Instructions: Take 1/2 tab TID. Discontinued Xulane 150-35 mcg/24 hr patch weekly 1 patch topical QWEEK 21 Days Qty: 3 0RF Rx Instructions: One patch every week. cholecalciferol (vitamin D3) 1,250 mcg (50,000 unit) Tablet 1,250 mcg PO QWEEK Stand Alone Forms: Patient Portal Discharge page Patient Education: (ED), Mood Disorders (ED), Mood Disorders (DC), Anxiety (ED) Print Language: Kyrgyz
== END 2024-07-23 23:59 | disposition home or self-care (01) ==
LOC: HO.PHPA 10:15
PROVIDERS: Visit Provider Psychiatry & Neurology Psychiatry
DX: F31.89 Other bipolar disorder (principal); F42.8 Other obsessive-compulsive disorder; F43.12 Post-traumatic stress disorder, chronic; F41.3 Other mixed anxiety disorders; Z79.899 Other long term (current) drug therapy; Z33.1 Pregnant state, incidental
CPT/HCPCS: 90791; 90853

== ENCOUNTER 2024-08-10 15:53 | Outpatient (AMB) | payer OTHER, SELFPAY ==
--- NOTE | 2024-08-10 16:08 | MHC.PC.OV ---
Vital Signs 08/10/24 16:09 Height 5 ft 6 in Weight 213 lb 6 oz BMI 34.4 BP 124/72 Blood Pressure Location Lt brachial Position Sitting Pulse 78 Pulse Source Pulse Oximeter Temp 97.1 F Temp Source Temporal Artery Scan Pulse Oximetry (%) 98 Oxygen Delivery Method Room Air Intake Visit Reasons: Annual Physical Intake Note: Patient is here today for a physical. Commercial Insulator Required: No Accompanied by: Self / Same As Patient Allergies nitrofurantoin Allergy (Intermediate, Verified 08/10/24 16:27) Rash Medication List - Last Reconciled 08/10/24 by Samir Coy PA-C cholecalciferol (vitamin D3) (Vitamin D3) 125 mcg PO DAILY clonidine HCl 0.05 mg (1/2 x 0.1 mg) PO BID PRN diphenhydramine HCl 25 - 50 mg (1 - 2 x 25 mg) PO BEDTIME PRN vit [id number] 27 mg iron- 800 mcg ( Vitamin) 1 tab PO DAILY quetiapine (Seroquel) 50 mg (2 x 25 mg) PO BEDTIME PRN sertraline 50 mg PO DAILY Tobacco use date assessed: 08/10/24 Dental Screening Dental Screen Date: 08/10/24 Did you have a dental visit in the last 12 months?: Yes Did you have a dental problem in the last 6 months where you did not have access to dental care?: No Was dental information given to patient?: Patient has dentist HPI Annual Physical HPI Details Patient is a 28 year old female here today for routine annual physical patient patient has a past medical history significant for juvenile asthma, obesity, hyperlipidemia, major depression disorder. Patient currently 7 weeks . Has noted to have a slight elevation in her fasting glucose and 500 glucose and urinalysis. She will continue to follow her senior scheduler further on her course for glucose tolerance testing. Until then she will work on lifestyle and dietary modification .. Anxiety and depression: Patient recently admitted to [facility] for psychiatric issue related to a PTSD. Her mental health has been heightened due to her . She has taken a leave of absence from her employer because of her mental health.. She continues on sertraline and p.r.n. use of Seroquel. Now has a mental health therapist and provider she is following up with regularly. .. Class 1 obesity: Patient does understand her BMI is over 30 will work on physical activity and healthy eating habits to reduce her weight. Vaccines:UTD COVID vaccine and tetanus vaccine. 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 [facility] Medical History History of concussion Hypovitaminosis D History of bradycardia History of bulimia nervosa Elevated BP without diagnosis of hypertension Mixed hyperlipidemia Hypercholesterolemia Obesity (BMI 30-39.9) Depression Surgical History History of section [place] teeth removed History of tonsillectomy Family History Mother Diabetes Hypercholesterolemia Mental health disorder Father Diabetes Hypercholesterolemia Social History (Updated 08/10/24 @ 16:30 by Samir Coy PA-C) Household Members: Significant Other and Children Housing: House Do you presently have visiting nurse or other home services: No Alcohol intake: current Alcohol intake frequency: holidays/special occasions only Alcohol type: wine Patient Tobacco Use Status: Never used Tobacco e-Cigarette/Vaping Use: Never Used Second Hand Smoke Exposure: No service: No Current occupational status: unemployed Current occupational exposures/hazards: No Sexual orientation: Don't Know Cognitive needs: No Hearing needs: No Vision needs: Yes Questionnaire PHQ-9 Over the last 2 weeks, how often have you been bothered by any of the following problems? 1. Little interest or pleasure in doing things: several days 2. Feeling down, depressed, or hopeless: several days 3. Trouble falling or staying asleep, or sleeping too much: several days 4. Feeling tired or having little energy: more than half the days 5. Poor appetite or overeating: more than half the days 6. Feeling bad about yourself - or that you are a failure or have let yourself or your family down: several days 7. Trouble concentrating on things, such as reading the newspaper or watching television: several days 8. Moving or speaking so slowly that other people could have noticed. Or the opposite - being so fidgety or restless that you have been moving around a lot more than usual: not at all 9. Thoughts that you would be better off or of hurting yourself in some way: not at all Total score: 9 Depression Screening Interpretation: Positive Depression Screening Follow-up: Existing condition and In treatment Depression Screening Done: Yes 93757 - PHQ-9 Billing: Yes Source: Developed by Drs. Alvaro Kumari, Brigitte Overton, Shailesh Whaley and colleagues, with an educational sophia from [employer]. Thrive Questionnaire Date Thrive assessed: 08/10/24 I am a: Patient What is your living situation today?: I have a steady place to live Within the past 12 months, did the food you bought not last and you didn't have the money to get more?: Never true Within the past 12 months, did you worry whether your food would run out before you got money to buy more?: Never true Do you have trouble paying for medicines?: No Do you have trouble getting transportation to medical appointments?: No Do you have trouble paying your heating and electricity bill?: No Do you have trouble taking care of your child, family member or friend?: No Do you have trouble with day-to-day activities such as bathing, preparing meals, shopping, managing finances, etc.?: No Are you currently unemployed and looking for a job?: I choose not to answer this question Are you interested in more education?: Yes Please select the resources that you would like help with: Housing/Group Home and Food Currently or been in a relationship where the following occur: I choose not to answer THRIVE Score: 0 AUDIT C Alcohol Use Questionnaire (AUDIT-C) 1. How often do you have a drink containing alcohol?: Never 3. How often do you have six or more drinks on one occasion?: Never Total Score: 0 RADHA-7 AMB Questionnaire RADHA-7 Date RADHA - 7 assessed: 08/10/24 Feeling nervous, anxious, or on edge: 2 = More than half the days Not being able to stop or control worryin = Several days Worrying too much about different things: 1 = Several days Trouble relaxin = Several days Being so restless that it is hard to sit still: 1 = Several days Becoming easily annoyed or irritable: 1 = Several days Feeling afraid as if something awful might happen: 1 = Several days Total RADHA-7 score (0-4 normal; 5-9 mild; 10-14 moderate; 15-21 severe): 8 Source: Developed by Drs. Alvaro Kumari, Brigitte Overton, Shailesh Whaley and colleagues, with an educational sophia from [employer]. RADHA-7 Assessment Billing RADHA-7 Assessment Tool: RADHA-7 Assessment 55782 Physical exam (Primary Care) Vital Signs: Last Vital Signs Temp 97.1 F 08/10/24 16:09 Pulse 78 08/10/24 16:09 BP 124/72 08/10/24 16:09 Pulse Ox 98 08/10/24 16:09 Oxygen Delivery Method Room Air 08/10/24 16:09 BMI result Body Mass Index 34.4 Tobacco/Smoking Status: Tobacco use Status Tobacco use date assessed 08/10/24 08/10/24 16:14 Patient Tobacco Use Status Never used Tobacco 08/10/24 16:14 e-Cigarette/Vaping Use Never Used 08/10/24 16:14 PHQ-9: PHQ-9 Score PHQ-9: Total score 9 08/10/24 16:14 Depression Screening Interpretation: Positive Depression Screening Follow-up: Existing condition and In treatment Thrive Assessment: Date of Thrive Assessment Date Thrive assessed 08/10/24 08/10/24 16:14 Currently or been in a relationship where the following occur: I choose not to answer Office Procedures Flu Questionnaire Does the patient have a severe egg allergy?: No Does the patient have severe life threatening allergies?: No Does the patient have a fever or illness today?: No Has the patient ever had Guillain-Dornsife Syndrome?: No Has the patient ever had any past reaction to a flu shot?: No Immunizations Fluarix Triv [id number] (PF) 45 mcg (15 mcg x 3)/0.5 mL IM syringe Performing Provider: Samir Coy PA-C [facility] Administered by: CARLY Najera on 08/10/24 16:17 Dose Route Admin Location Dispensed Lot Number Expiration Date NDC Pension Consultant 0.5 mL IM Left Deltoid 0.5 mL [id number] 12/27/24 57718-715-57 Care IT VIS Given Date VIS Provided VIS Publication Date 08/10/24 Single Vaccine 21 Eligibility Eligibility Date Funding Source Not [facility] Eligible 08/10/24 Private Coding Level of Care Code Est Pt Prev Care [id number]) Diagnoses Annual physical exam Z00.00 Impaired fasting glucose R73.01 Hypercholesterolemia E78.00 Severe recurrent major depressive disorder with psychosis F33.3 RADHA (generalized anxiety disorder) F41.1 Additional Codes RADHA-7 Assessment Billing - RADHA-7 Assessment Tool: RAHDA-7 Assessment 38475 ([id number]) PHQ-9 - 78040 - PHQ-9 Billing: Yes ([id number]) Assessment & Plan Assessment & Plan (1) Annual physical exam: Code(s): Z00.00 - Encounter for general adult medical examination without abnormal findings Category: Medical Plan: As per HPI (2) Impaired fasting glucose: Code(s): R73.01 - Impaired fasting glucose Category: Medical Plan: Most recent fasting 100 did have 500 glucose in her urinalysis. She will work extensively on being more physically active and adapting to better eating habits particularly low-carbohydrate diet to try to avoid gestational diabetes. (3) Hypercholesterolemia: Code(s): E78.00 - Pure hypercholesterolemia, unspecified Category: Medical Plan: Most recent lipid panel showing borderline high cholesterol. Again will work on lifestyle and dietary modifications. (4) Severe recurrent major depressive disorder with psychosis: Comment: [facility] Code(s): F33.3 - Major depressive disorder, recurrent, severe with psychotic symptoms Category: Medical Plan: Patient's PHQ-9 score positive for depression which has been existing condition for her. Again was recently admitted for a mental health issue. Med adjustments have been made. She continues to follow up with a mental health therapist weekly. (5) RADHA (generalized anxiety disorder): Code(s): F41.1 - Generalized anxiety disorder Category: Medical Plan: Patient's RADHA-7 score positive anxiety which has been existing condition for her. Again working with a mental health therapist and a psychiatrist on her mental health. Orders: Orders Influenza [id number] Immunization Today Z23 - Encounter for immunization Medications: Changed From cholecalciferol (vitamin D3) (Vitamin D3) 125 mcg PO DAILY 30 tabs 0RF E66.9 - Obesity, unspecified To cholecalciferol (vitamin D3) (Vitamin D3) 125 mcg PO DAILY 90 days 90 tabs 1RF E66.9 - Obesity, unspecified
[2024-08-10 16:09] VITALS: BP 124/72; PULSE 78; TEMP 36.2; O2SAT 98; BMI 34.4
== END 2024-08-10 16:50 | disposition home or self-care (01) ==
PROVIDERS: PCP Physician Assistant; Visit Provider Physician Assistant
DX: Z00.00 Encounter for general adult medical examination without abnormal findings (principal); R73.01 Impaired fasting glucose; E78.00 Pure hypercholesterolemia, unspecified; F33.3 Major depressive disorder, recurrent, severe with psychotic symptoms; F41.1 Generalized anxiety disorder; Z23 Encounter for immunization

== ENCOUNTER → 2024-08-10 15:53 | Outpatient (BNVA) | payer OTHER, SELFPAY | PROVIDERS: PCP Physician Assistant; Visit Provider Physician Assistant | DX: Z00.00 Encounter for general adult medical examination without abnormal findings (principal); Z23 Encounter for immunization; R73.01 Impaired fasting glucose; E78.00 Pure hypercholesterolemia, unspecified; F33.3 Major depressive disorder, recurrent, severe with psychotic symptoms; F41.1 Generalized anxiety disorder | CPT/HCPCS: 90471; 90656; 96127; 99395 ==